=== PATIENT | female | born 1965 | race Caucasian/White ===

== ENCOUNTER 2016-02-17 16:07 | Emergency (ER) | payer MEDICARE, MEDICAID ==
[2016-02-17 16:42] VITALS: BP 119/66
--- NOTE | 2016-02-17 17:01 | UC ---
General HPI - HPI Summary HPI Summary: The patient comes in today for: 1. Tailbone is sore after fall, right hand soreness, right shoulder pain: Onset: 2 days ago. Palliative/provocative: Pain medicine (Nucynta [address] Rahman in [place] sciatica/hamstring left leg and arthritis in "all my joints." Quality: Stabbing, sharp, Region/radiation: Severity: Right hand, tailbone, and right shoulder. Time: Constant. Associated symptoms: Event: She came out the door and slipped on ice falling straight down on her buttocks and on her right hand. She was able to get up by herself. She felt pain right then. She however, went to yazidism. She came back home after a couple hours. Then she went to work ([employer]). She did "the best" that she could. She worked there four hours. She went home. She just relaxed. She iced the tail bone area. She soaked in the tub and used her "bed palomo" after heating it up in the microwave. Then went to bed. This AM, she is "still sore." She did not do any other treatments Numbness/weakness (new): None. Bowel/bladder control: No new symptoms. * - History of Current Complaint Chief Complaint: UCLowerExtremity Stated Complaint: BACK PAIN Time Seen by Provider: 02/17/16 16:52 Hx Obtained From: Patient - Allergy/Home Medications Allergies/Adverse Reactions: Allergies Allergy/AdvReac Type Severity Reaction Status Date / Time Diazepam [From Valium] Allergy Severe See Comment Verified 02/17/16 16:37 Hydrocodone [From Vicodin] Allergy Severe See Comment Verified 02/17/16 16:37 Metaxalone [From Skelaxin] Allergy Severe Rash Verified 02/17/16 16:37 Ibuprofen AdvReac Severe HX Verified 02/17/16 16:37 ESOPHAGITIS FROM MOBIC narcotics Allergy Severe See Comment Uncoded 02/17/16 16:37 muscle relaxers Allergy Altered Uncoded 02/17/16 16:37 Mental Status Home Medications: Home Medications Tapentadol HCl [Nucynta] 02/17/16 [History] PMH/Surg Hx/FS Hx/Imm Hx Previously Healthy: No - Allergic rhinitis, urge incontinence, hamstring/ sciatica "whole body arthri Endocrine History Of: Reports: Thyroid Disease - hypothyroid, Hypothyroidism Cardiovascular History Of: Reports: Cardiac Disorders - elevated trop. She denies any heart problems, stents, bypasses Denies: Hypertension, Pacemaker/ICD, Myocardial Infarction, Congestive Heart Failure, Atrial Fibrillation, Deep Vein Thrombosis, Bleeding Disorders Respiratory History Of: Denies: COPD, Asthma, Bronchitis, Pneumonia, Pulmonary Embolism GI/ History Of: Denies: Gastroesophageal Reflux, Ulcer, Gastrointestinal Bleed, Gall Bladder Disease, Kidney Stones, Diverticulitis, Renal Disease, Urosepsis Neurological History Of: Reports: Migraine Denies: TIA, CVA, Dementia, Seizures Psychological History Of: Reports: Bipolar Disorder Denies: Anxiety, Depression, Schizophrenia, Post Traumatic Stress Disorder Cancer History Of: Denies: Lung Cancer, Colorectal Cancer, Breast Cancer, Prostate Cancer, Cervical Cancer Other History Of: Negative For: HIV, Hepatitis B, Hepatitis C, Anticoagulant Therapy - Surgical History Surgical History: Yes Surgery Procedure, Year, and Place: TUBAL LIGATION, WISDOM TEETH EXTRACTION - Family History Known Family History: Positive: Cardiac Disease, Hypertension, Other - NONCONTIRBUTORY - Social History Occupation: Employed Full-time Alcohol Use: None Substance Use Type: None Smoking Status (MU): Former Smoker Review of Systems Constitutional: Negative Skin: Negative Eyes: Negative ENT: Negative Respiratory: Negative Cardiovascular: Negative Gastrointestinal: Negative Genitourinary: Negative Musculoskeletal: Arthralgia, Myalgia All Other Systems Reviewed And Are Negative: Yes Physical Exam Triage Information Reviewed: Yes Appearance: Well-Appearing, No Pain Distress, Well-Nourished, Other: - She is animated and has no guarding of psychomotor slowing. Vital Signs: Initial Vital Signs Temp 96.2 F 02/17/16 16:38 Pulse 91 02/17/16 16:38 Resp 16 02/17/16 16:38 BP 119/66 02/17/16 16:38 Pulse Ox 99 02/17/16 16:38 Vital Signs Reviewed: Yes Eyes: Positive: Conjunctiva Clear. Negative: Discharge ENT: Positive: Hearing grossly normal. Negative: Pharyngeal erythema, Nasal congestion, Nasal drainage, TM bulging, TM red, Tonsillar swelling, Tonsillar exudate Dental: Negative: Gross Decay/Caries @, Dental Fracture @ Neck: Positive: Supple, Nontender, No Lymphadenopathy. Negative: Nuchal Rigidity Respiratory: Positive: Chest non-tender, Lungs clear, No respiratory distress, No accessory muscle use. Negative: Crackles, Wheezing Cardiovascular: Positive: RRR, No Murmur Abdomen Description: Positive: Nontender, No Organomegaly, Soft. Negative: Distended, Guarding Musculoskeletal: Positive: Strength Intact, ROM Intact, Other: - She has sorness to palpation of the lower sacral area--but no ecchymosis or edema. There was slight tenderness to palpation of the coracoid process and biceps tendon on the right shoulder. She had excellent abduction. No ecchymosis or edema. She had no pain with internal and external rotational strain. She had no ecchymosis or edema or restriction in range of motion of the fingers or wrists of the right hand/wrist. Neurological: Positive: Alert, Muscle Tone Normal Psychological: Positive: Age Appropriate Behavior, Consolable Skin: Negative: rashes, breakdown Diagnostics - Radiology No standard instances Xray Interpretation: No Acute Changes Radiology Interpretation Completed By: Radiologist - Right shoulder: Negative Right hand: Negative Sacrum/coccyx: Negative. Course/Dx - Course Course Of Treatment: Patient was told of the negative x-rays. She is happy with taking Nucynta for pain. - Differential Dx - Multi-Symptom Provider Diagnoses: Contusion (right hand, right shoulder, sacrum/coccyx): Discharge - Discharge Plan Condition: Stable Disposition: HOME Patient Education Materials: Contusion in Adults (ED) Referrals: Annie Fonseca MD [Primary Care Provider] - 1 Week (Please see your primary care provider in a week. If you get worse, please be seen sooner.)
--- NOTE | 2016-02-17 17:41 | RAD ---
INDICATION: Right shoulder pain 3 days after a traumatic fall COMPARISON: None. TECHNIQUE: 3 views of the right shoulder were obtained. FINDINGS: The adequately corticated bones are in normal alignment. Joint spaces appear maintained. No fracture, dislocation or focal bony abnormality is seen. IMPRESSION: Normal radiograph of the right shoulder. If the patient's symptoms persist, follow-up imaging is recommended.
--- NOTE | 2016-02-17 17:42 | RAD ---
INDICATION: Right hand pain after a fall COMPARISON: None. TECHNIQUE: 2 views of the right hand were obtained. The adequately corticated bones are in normal alignment. No significant focal osseous abnormality or fracture is seen. Joint spaces appear maintained. IMPRESSION: Normal hand radiograph. If the patient's symptoms persist, follow-up imaging is recommended.
--- NOTE | 2016-02-17 17:44 | RAD ---
Indication: Sacral pain 3 days after a fall Comparison: None. Technique: AP and lateral views sacrum and coccyx. Report: The visualized bones of the sacrum and coccyx are well-corticated and properly aligned. The joint spaces are adequately maintained. There is no radiographically apparent acute fracture or dislocation. IMPRESSION: Normal radiograph of the sacrum and coccyx. If the patient's symptoms persist, follow-up imaging is recommended.
== END 2016-02-17 17:55 | disposition home or self-care (01) ==
LOC: UCEAST 16:07
DX: S60.221A Contusion of right hand, initial encounter (principal); S40.011A Contusion of right shoulder, initial encounter; S30.0XXA Contusion of lower back and pelvis, initial encounter; Z87.891 Personal history of nicotine dependence; Z88.5 Allergy status to narcotic agent; Z88.6 Allergy status to analgesic agent; Z88.8 Allergy status to other drugs, medicaments and biological substances; W00.0XXA Fall on same level due to ice and snow, initial encounter; Y92.9 Unspecified place or not applicable
CPT/HCPCS: 72220; 99211; G0463

== ENCOUNTER 2016-08-06 22:09 | Emergency (ER) | payer MEDICARE, MEDICAID ==
[2016-08-07 00:01] LABS: Hematocrit 38 % (35-47); Hemoglobin 12.9 g/dl (12.0-16.0); Mean Corpuscular HGB Conc 34 g/dl (31-36); Mean Corpuscular Hemoglobin 31 pg (27-31); Mean Corpuscular Volume 89 fL (80-97); Mean Platelet Volume 7 um3 (7.4-10.4); Red Blood Count 4.24 10^6/ul (4.0-5.4); Red Cell Distribution Width 13 % (10.5-15); White Blood Count 4.8 10^3/ul (3.5-10.8)
[2016-08-07 00:17] LABS: Albumin 3.6 g/dL (3.2-5.2); BUN/Creatinine Ratio 12.3 (8-20); Calcium 8.7 mg/dL (8.6-10.3); EGFR African American 142.7 (>60); Potassium 3.1 mmol/L (3.5-5.0); Total Bilirubin 0.3 mg/dL (0.2-1.0); Total Protein 6.6 g/dL (6.4-8.9)
[2016-08-07] MEDS ORDERED: Potassium Chlor TAB* 20 MEQ TAB.ER PO ONE (00:37)
--- NOTE | 2016-08-07 00:37 | ED ---
Sully Wright Alfonso, scribed for Arvind Rao MD on 08/06/16 at 2345 . Shortness of Breath - HPI Summary HPI Summary: This patient is a 51 year old female presenting to [facility] c/o a nonproductive cough since last week. Her symptoms are intermittent and became worse at 0800 today. She has been taking Mucinex all week with no relief of symptoms. Symptoms aggravated and alleviated by nothing. She reports chest tightness and diaphoresis. She denies a fever. She also denies tobacco use. - History of Current Complaint Chief Complaint: EDShortnessOfBreath Time Seen by Provider: 08/06/16 23:31 Hx Obtained From: Patient Onset/Duration: Sudden Onset, Lasting Weeks - 1 week, Worse Since Timing: Intermittent Episodes Lasting: Current Severity: Moderate Aggrevating Factors: Nothing Alleviating Factors: Nothing Associated Signs & Symptoms: Cough (Nonproductive), Chest Pain w/Cough - Chest tightness, Diaphoresis - Allergy/Home Medications Allergies/Adverse Reactions: Allergies Allergy/AdvReac Type Severity Reaction Status Date / Time Diazepam [From Valium] Allergy Severe See Comment Verified 08/06/16 23:24 Hydrocodone [From Vicodin] Allergy Severe See Comment Verified 08/06/16 23:24 Metaxalone [From Skelaxin] Allergy Severe Rash Verified 08/06/16 23:24 Ibuprofen AdvReac Severe HX Verified 08/06/16 23:24 ESOPHAGITIS FROM MOBIC narcotics Allergy Severe See Comment Uncoded 08/06/16 23:24 muscle relaxers Allergy Altered Uncoded 08/06/16 23:24 Mental Status PMH/Surg Hx/FS Hx/Imm Hx Endocrine/Hematology History: Reports: Hx Thyroid Disease - hypothyroid Denies: Hx Anticoagulant Therapy, Hx Diabetes, Hx Systemic Lupus Erythematosus Cardiovascular History: Reports: Hx Angina Denies: Hx Congestive Heart Failure, Hx Deep Vein Thrombosis, Hx Hypertension , Hx Myocardial Infarction, Hx Pacemaker/ICD Respiratory History: Denies: Hx Asthma, Hx Chronic Obstructive Pulmonary Disease (COPD), Hx Lung Cancer, Hx Pneumonia, Hx Pulmonary Embolism GI History: Denies: Hx Gall Bladder Disease, Hx Gastrointestinal Bleed, Hx Ulcer, Hx Urosepsis History: Denies: Hx Kidney Stones, Hx Renal Disease Musculoskeletal History: Reports: Hx Arthritis Denies: Hx Rheumatoid Arthritis, Hx Osteoporosis Neurological History: Reports: Hx Migraine Denies: Hx Dementia, Hx Seizures, Hx Transient Ischemic Attacks (TIA) Psychiatric History: Reports: Hx Bipolar Disorder Denies: Hx Anxiety, Hx Depression, Hx Schizophrenia, Hx Substance Abuse - Cancer History Hx Chemotherapy: No - Surgical History Surgery Procedure, Year, and Place: TUBAL LIGATION, WISDOM TEETH EXTRACTION Infectious Disease History: No Infectious Disease History: Denies: Hx Clostridium Difficile, Hx Hepatitis, Hx Human Immunodeficiency Virus (HIV), Hx Shingles, Hx Tuberculosis, History Other Infectious Disease, Traveled Outside the [place] in Last 30 Days - Family History Known Family History: Positive: Cardiac Disease, Hypertension, Other - NONCONTIRBUTORY - Social History Alcohol Use: None Substance Use Type: Reports: Prescribed Smoking Status (MU): Former Smoker Review of Systems Positive: Skin Diaphoresis. Negative: Fever Positive: Chest Pain - Chest tightness Positive: Cough - Non productive All Other Systems Reviewed And Are Negative: Yes Physical Exam Triage Information Reviewed: Yes Vital Signs On Initial Exam: Initial Vitals Temp Pulse Resp BP Pulse Ox 96.7 F 109 18 121/81 95 08/06/16 22:11 08/06/16 22:11 08/06/16 22:11 08/06/16 22:11 08/06/16 22:11 Vital Signs Reviewed: Yes Appearance: Positive: Well-Appearing, No Pain Distress Skin: Positive: Warm Head/Face: Positive: Normal Head/Face Inspection Eyes: Positive: SOCRATES ENT: Positive: Hearing grossly normal Neck: Positive: Supple Respiratory/Lung Sounds: Positive: Clear to Auscultation, Breath Sounds Present Cardiovascular: Positive: RRR Abdomen Description: Positive: Nontender, Soft Bowel Sounds: Positive: Present Musculoskeletal: Positive: Strength/ROM Intact Neurological: Positive: Alert, Oriented to Person Place, Time Psychiatric: Positive: Affect/Mood Appropriate Diagnostics - Vital Signs Vital Signs Temp Pulse Resp BP Pulse Ox 08/06/16 23:20 97.6 F 93 16 123/81 97 08/06/16 23:15 97.6 F 93 16 123/81 97 08/06/16 23:08 94 123/81 96 08/06/16 23:06 151/91 08/06/16 22:11 96.7 F 109 18 121/81 95 - Laboratory Lab Results: Lab Results 08/06/16 08/06/16 Range/Units 23:48 23:48 WBC 4.8 (3.5-10.8) 10^3/ul RBC 4.24 (4.0-5.4) 10^6/ul Hgb 12.9 (12.0-16.0) g/dl Hct 38 (35-47) % MCV 89 (80-97) fL MCH 31 (27-31) pg MCHC 34 (31-36) g/dl RDW 13 (10.5-15) % Plt Count 232 (150-450) 10^3/ul MPV 7 L (7.4-10.4) um3 Neut % (Auto) 62.8 (38-83) % Lymph % (Auto) 26.2 (25-47) % [facility] % (Auto) 9.6 H (1-9) % Eos % (Auto) 0.9 (0-6) % Baso % (Auto) 0.5 (0-2) % Absolute Neuts (auto) 3.0 (1.5-7.7) 10^3/ul Absolute Lymphs (auto) 1.3 (1.0-4.8) 10^3/ul Absolute Monos (auto) 0.5 (0-0.8) 10^3/ul Absolute Eos (auto) 0 (0-0.6) 10^3/ul Absolute Basos (auto) 0 (0-0.2) 10^3/ul Absolute Nucleated RBC 0 10^3/ul Nucleated RBC % 0.1 Sodium 134 (133-145) mmol/L Potassium 3.1 L (3.5-5.0) mmol/L Chloride 101 (101-111) mmol/L Carbon Dioxide 24 (22-32) mmol/L Anion Gap 9 (2-11) mmol/L BUN 7 (6-24) mg/dL Creatinine 0.57 (0.51-0.95) mg/dL Est GFR ( Amer) 142.7 (>60) Est GFR (Non-Af Amer) 111.0 (>60) BUN/Creatinine Ratio 12.3 (8-20) Glucose 97 (70-100) mg/dL Calcium 8.7 (8.6-10.3) mg/dL Total Bilirubin 0.30 (0.2-1.0) mg/dL AST 19 (13-39) U/L ALT 17 (7-52) U/L Alkaline Phosphatase 35 (34-104) U/L Total Protein 6.6 (6.4-8.9) g/dL Albumin 3.6 (3.2-5.2) g/dL Globulin 3.0 (2-4) g/dL Albumin/Globulin Ratio 1.2 (1-3) Result Diagrams: 08/06/16 23:48 08/06/16 23:48 Lab Statement: Any lab studies that have been ordered have been reviewed, and results considered in the medical decision making process. - Radiology CXR Radiology Interpretation Completed By: ED Physician - No acute disease - EKG 2328 Cardiac Rate: NL - BPM 86 EKG Rhythm: Sinus Rhythm Re-Evaluation - Re-Evaluation First Eval Change: Improved - results d/w pt Course/Dx - Diagnoses Provider Diagnoses: URI (upper respiratory infection) Discharge - Discharge Plan Condition: Improved Disposition: HOME Patient Education Materials: Upper Respiratory Infection (ED) Referrals: Annie Fonseca MD [Primary Care Provider] - 1 Week The documentation as recorded by the Sully mott Alfonso accurately reflects the service I personally performed and the decisions made by Jalen zheng David, MD.
[2016-08-07 01:04] VITALS: BP 135/70
--- NOTE | 2016-08-07 07:34 | RAD ---
INDICATION: Cough. COMPARISON: Comparison is made with prior study from April 28, 2013. TECHNIQUE: Dual-energy PA and lateral views of the chest were obtained. FINDINGS: The heart is within normal limits in size. Mediastinal and hilar contours appear within normal limits. The lungs are underinflated and clear. No pleural effusion is seen. There are nipple shadows which project above both lung bases. IMPRESSION: NO EVIDENCE FOR ACTIVE CARDIOPULMONARY DISEASE.
== END 2016-08-07 01:00 | disposition home or self-care (01) ==
LOC: ED 22:09
DX: J06.9 Acute upper respiratory infection, unspecified (principal); R61 Generalized hyperhidrosis; R05 Cough; R07.9 Chest pain, unspecified; Z87.891 Personal history of nicotine dependence
CPT/HCPCS: 36415; 71020; 80053; 85025; 93005; 99282; A9270-GY

== ENCOUNTER 2017-06-28 10:24 | Day surgery (SDC) | payer MEDICARE, MEDICAID ==
[~2017-06-28 10:24] MED LIST: Buffered Lidocaine 0.9% SYRIN* 5 ML/SYR SYRINGE INTRADERM ONE
[2017-06-28] MEDS ORDERED: Lidocaine 2% PF * 5 ML VIAL ONE (12:32)
[2017-06-28] MEDS ORDERED: Propofol* 10 MG/ML 20 ML BTL IV PUSH ONE (12:32)
[2017-06-28 13:11] VITALS: BP 101/61
[2017-06-28] MEDS ORDERED: Lidocaine 1% MPF* 2 ML VIAL ONE (14:20)
[2017-06-28] MEDS ORDERED: Cyclopentolate 1% OPTH.SOL* 2 ML BTL ONE (14:20)
[2017-06-28] MEDS ORDERED: Tetracaine 0.5% OPTH.SOL 4 ML* 1 DROP BTL ONE (14:20)
[2017-06-28] MEDS ORDERED: Tropicamide 1% OPTH.SOL* BTL ONE (14:20)
[2017-06-28] MEDS ORDERED: Phenylephrine 2.5% OPTH.SOL* 2 ML BTL ONE (14:20)
[2017-06-28] MEDS ORDERED: Ketorolac 0.5% OPHTH (NF) 0.5 % 5 ML BTL ONE (14:20)
[2017-06-28] MEDS ORDERED: Neomycin/Polymy/Dex OPHTH.OIN* 3.5 GM ONE (14:20)
--- NOTE | 2017-06-28 16:45 | OP ---
DATE OF OPERATION/DATE OF DICTATION: 06/28/2017 - [facility] DATE OF : 1965. SURGEON: Dr. Marcus Simpson. POLE LIFT OPERATOR: None. ANESTHESIA: Topical with intravenous sedation. PRE-OP DIAGNOSIS: Cataract, right eye. POST-OP DIAGNOSIS: Cataract, right eye. OPERATIVE PROCEDURE: Phacoemulsification and cataract extraction with posterior chamber intraocular lens implant, right eye. COMPLICATIONS: None. BLOOD LOSS: None. DESCRIPTION OF PROCEDURE: The patient was brought to the operating room and received a small amount of intra-venous sedation. A drop of Tetracaine was placed in her right eye. She was prepped and draped in the usual sterile fashion for ophthalmic surgery and attention was directed to the right eye where a speculum was placed. A paracentesis was created at the 11 o'clock position and 0.1 cc of 1 percent preservative-free Lidocaine was injected into the anterior chamber followed by DisCoVisc. The eye was digitally stabilized while a 2.75 mm keratome was used to create a triplanar clear corneal incision at the 9 o'clock position. A continuous curvilinear capsulorrhexis was created with a cystotome and Utrata forceps. BSS on a cannula was used to hydrodissect the lens from the capsule. Phacoemulsification was performed in a divide-and- conquer technique to create four fragments which were removed. Residual cortical material was removed with irrigation and aspiration. DisCoVisc was used to inflate the capsular bag and an AUOOTO 19.0 diopter lens was folded and inserted into the capsular bag. DisCoVisc was removed using irrigation and aspiration. BSS on a cannula was used to hydrate the corneal stroma and seal the wound. At the end of the case the pupil was round and the lens was centered. The eye was of normal pressure and the wound was water tight. The speculum was removed and topical Maxitrol ointment was placed on the surface of the eye. The eye was closed, patched and shielded and the patient was sent to the recovery room in stable condition with post operative instructions and follow-up appointment given. [id number]/CPS #: [id number] MTDD
== END 2017-07-05 09:15 | disposition home or self-care (01) ==
LOC: OREAST 10:24
PROVIDERS: ATTEND Ophthalmology
DX: H25.11 Age-related nuclear cataract, right eye (principal); F31.9 Bipolar disorder, unspecified; M19.90 Unspecified osteoarthritis, unspecified site; E03.9 Hypothyroidism, unspecified; E78.5 Hyperlipidemia, unspecified; K21.9 Gastro-esophageal reflux disease without esophagitis; Z87.891 Personal history of nicotine dependence; M54.30 Sciatica, unspecified side
CPT/HCPCS: A9270-GY; J2704; V2632

== ENCOUNTER → 2017-07-05 07:23 | Day surgery (SDC) | payer MEDICARE, MEDICAID ==
[~2017-07-05 07:23] MED LIST changes: -Buffered Lidocaine 0.9% SYRIN* 5 ML/SYR SYRINGE INTRADERM ONE; +Cyclopentolate 1% OPTH.SOL* 2 ML BTL ONE; +Ketorolac 0.5% OPHTH (NF) 0.5 % 5 ML BTL ONE; +Lidocaine 1%* 5 ML VIAL ONE; +Lidocaine 2% PF * 5 ML VIAL ONE; +Midazolam* 1 MG/ML 2 ML VIAL (2 MG) ONE; +Neomycin/Polymy/Dex OPHTH.OIN* 3.5 GM ONE; +Phenylephr/Ketorolac 1%/0.3% OPH DROP BTL ONE; +Phenylephrine 2.5% OPTH.SOL* 2 ML BTL ONE; +Propofol* 10 MG/ML 20 ML BTL IV PUSH ONE; +Tetracaine 0.5% OPTH.SOL 4 ML* 1 DROP BTL ONE; +Tropicamide 1% OPTH.SOL* BTL ONE; +fentaNYL* 50 MCG/ML 2 ML VIAL (100 MCG VIAL) ONE
[2017-07-05 09:14] VITALS: BP 105/53
--- NOTE | 2017-07-05 12:06 | OP ---
DATE OF OPERATION/DATE OF DICTATION: 07/05/2017 - [facility] DATE OF : 1965. SURGEON: Dr. Marcus Simpson. STEAM ROOM ATTENDANT: None. ANESTHESIA: Topical with intravenous sedation. PRE-OP DIAGNOSIS: Cataract, left eye. POST-OP DIAGNOSIS: Cataract, left eye. OPERATIVE PROCEDURE: Phacoemulsification and cataract extraction with posterior chamber intraocular lens implant, left eye. COMPLICATIONS: None. BLOOD LOSS: None. DESCRIPTION OF PROCEDURE: The patient was brought to the operating room and received a small amount of intravenous sedation. A drop of Tetracaine was placed in her left eye. She was prepped and draped in the usual sterile fashion for ophthalmic surgery and attention was directed to the left eye where a speculum was placed. A paracentesis was created at the 5 o'clock position and 0.1 cc of 1 percent preservative-free Lidocaine was injected into the anterior chamber followed by DisCoVisc. The eye was digitally stabilized while a 2.75 mm keratome was used to create a triplanar clear corneal incision at the 3 o'clock position. A continuous curvilinear capsulorrhexis was created with a cystotome and Utrata forceps. BSS on a cannula was used to hydrodissect the lens from the capsule. Phacoemulsification was performed in a divide-and- conquer technique to create four fragments which were removed. Residual cortical material was removed with irrigation and aspiration. DisCoVisc was used to inflate the capsular bag and an AUOOTO 19.5 diopter lens was folded and inserted into the capsular bag. DisCoVisc was removed using irrigation and aspiration. BSS on a cannula was used to hydrate the corneal stroma and seal the wound. At the end of the case the pupil was round and the lens was centered. The eye was of normal pressure and the wound was water tight. The speculum was removed and topical Maxitrol ointment was placed on the surface of the eye. The eye was closed, patched and shielded and the patient was sent to the recovery room in stable condition with post operative instructions and follow-up appointment given. [id number]/CPS #: [id number] MTDD
== END | disposition home or self-care (01) ==
LOC: OREAST 07:23
PROVIDERS: ATTEND Ophthalmology
DX: H25.12 Age-related nuclear cataract, left eye (principal); M19.90 Unspecified osteoarthritis, unspecified site; E03.9 Hypothyroidism, unspecified; F31.81 Bipolar II disorder; E78.2 Mixed hyperlipidemia; K21.9 Gastro-esophageal reflux disease without esophagitis; E06.3 Autoimmune thyroiditis
CPT/HCPCS: A9270-GY; C9447; J2250; J2704; J3010; V2632

== ENCOUNTER → 2018-03-13 10:43 | Emergency (ER) | payer MEDICARE, MEDICAID ==
[~2018-03-13 10:43] MED LIST changes: -Cyclopentolate 1% OPTH.SOL* 2 ML BTL ONE; +Iohexol 300* (CONTRAST) 10 ML SDV IV ONE; -Ketorolac 0.5% OPHTH (NF) 0.5 % 5 ML BTL ONE; -Lidocaine 1%* 5 ML VIAL ONE; -Lidocaine 2% PF * 5 ML VIAL ONE; -Midazolam* 1 MG/ML 2 ML VIAL (2 MG) ONE; -Neomycin/Polymy/Dex OPHTH.OIN* 3.5 GM ONE; -Phenylephr/Ketorolac 1%/0.3% OPH DROP BTL ONE; -Phenylephrine 2.5% OPTH.SOL* 2 ML BTL ONE; -Propofol* 10 MG/ML 20 ML BTL IV PUSH ONE; -Tetracaine 0.5% OPTH.SOL 4 ML* 1 DROP BTL ONE; -Tropicamide 1% OPTH.SOL* BTL ONE; -fentaNYL* 50 MCG/ML 2 ML VIAL (100 MCG VIAL) ONE
--- NOTE | 2018-03-13 13:30 | ED ---
Abdominal Pain/Female - HPI Summary HPI Summary: Patient is a 52 y/o F presenting to ED with complaints of LLQ pain with radiation to left side of lower back and down left leg onsetting three days ago in the evening. She reports diaphoresis and fatigue as well. N/V/D, fever, vaginal discharge, hematuria, and rashes are denied. Patient notes constipation but contributes this to her medications. Appendix is still present. On triage, pain is rated 10/10. Nothing is noted to aggravate/alleviate Sx. Home medications and allergies are reviewed. - History of Current Complaint Chief Complaint: EDAbdPain Stated Complaint: SWEATS/ABD PAIN LEFT SIDE AND BACK Time Seen by Provider: 03/13/18 13:17 Hx Obtained From: Patient Hx Last Menstrual Period: last week but irregular Onset/Duration: Lasting Days - three, Still Present Timing: Days - three Severity Currently: Severe Pain Intensity: 8 Pain Scale Used: 0-10 Numeric - 8/10 Location: Discrete At: LLQ Radiates: Yes Radiates to: Back - left lower, Other - left leg Aggravating Factor(s): Nothing Alleviating Factor(s): Nothing Associated Signs and Symptoms: Positive: Diaphoresis, Constipation - contributes this to her medications, Other: - NEGATIVE - RASH; POSITIVE - FATIGUE. Negative: Fever, Urinary Symptoms - no hematuria, Vaginal Discharge, Nausea, Vomiting, Diarrhea Allergies/Adverse Reactions: Allergies Allergy/AdvReac Type Severity Reaction Status Date / Time diazepam Allergy Severe See Comment Verified 03/13/18 11:05 metaxalone Allergy Severe Rash Verified 03/13/18 11:05 ibuprofen Allergy See Comment Verified 03/13/18 11:05 oxycodone Allergy Altered Verified 03/13/18 11:05 Mental Status muscle relaxers Allergy Intermediate Altered Uncoded 07/05/17 07:59 Mental Status PMH/Surg Hx/FS Hx/Imm Hx Endocrine/Hematology History: Reports: Hx Thyroid Disease - hypothyroid, Hx Anemia - history of anemia, years ago Denies: Hx Anticoagulant Therapy, Hx Diabetes, Hx Systemic Lupus Erythematosus Cardiovascular History: Reports: Hx Angina Denies: Hx Congestive Heart Failure, Hx Deep Vein Thrombosis, Hx Hypertension , Hx Myocardial Infarction, Hx Pacemaker/ICD, Hx Peripheral Vascular Disease, Other Cardiovascular Problems/Disorders Respiratory History: Reports: Other Respiratory Problems/Disorders - pneumonia 7 years ago Denies: Hx Asthma, Hx Chronic Obstructive Pulmonary Disease (COPD), Hx Lung Cancer, Hx Pneumonia, Hx Pulmonary Embolism GI History: Reports: Hx Gastroesophageal Reflux Disease - on medication Denies: Hx Gall Bladder Disease, Hx Gastrointestinal Bleed, Hx Ulcer, Hx Urosepsis, Other GI Disorders History: Reports: Hx Kidney Infection - history of, none recent, Other Problems/Disorders - states "nervous bladder" on vesicare, incontinent with anxiety, Hx UTIs Denies: Hx Kidney Stones, Hx Renal Disease Musculoskeletal History: Reports: Hx Arthritis, Hx Bursitis - in heels per pt, Hx Tendonitis - bilateral elbows, Other Musculoskeletal History - Sciatica Denies: Hx Rheumatoid Arthritis, Hx Osteoporosis Sensory History: Reports: Hx Cataracts - Bilateral, Hx Contacts or Glasses - Glasses Denies: Hx Glaucoma, Hx Hearing Aid Opthamlomology History: Reports: Hx Cataracts - Bilateral, Hx Contacts or Glasses - Glasses Denies: Hx Glaucoma Neurological History: Reports: Hx Migraine, Hx Nerve Disease - Nerve pain, sciatica, pt of Dr Rodríguez Denies: Hx Dementia, Hx Seizures, Hx Transient Ischemic Attacks (TIA), Other Neuro Impairments/Disorders - Bipolar Disorder-[facility] Psychiatric History: Reports: Hx Bipolar Disorder Denies: Hx Anxiety, Hx Depression, Hx Schizophrenia, Hx Substance Abuse - Cancer History Hx Chemotherapy: No - Surgical History Surgery Procedure, Year, and Place: TUBAL LIGATION, WISDOM TEETH EXTRACTION Hx Anesthesia Reactions: Yes - States she takes longer to come out of anesthesia Infectious Disease History: No Infectious Disease History: Denies: Hx Clostridium Difficile, Hx Hepatitis, Hx Human Immunodeficiency Virus (HIV), Hx Shingles, Hx Tuberculosis, History Other Infectious Disease, Traveled Outside the in Last 30 Days - Family History Known Family History: Positive: Cardiac Disease, Hypertension, Other - NONCONTIRBUTORY - Social History Alcohol Use: None Substance Use Type: Reports: Prescribed Hx Tobacco Use: No Smoking Status (MU): Former Smoker Type: Cigarettes Have You Smoked in the Last Year: No Review of Systems Positive: Fatigue, Skin Diaphoresis. Negative: Fever Positive: Abdominal Pain, Other - constipation due to medications . Negative: Vomiting, Diarrhea, Nausea Negative: discharge - vaginal , hematuria Negative: Rash All Other Systems Reviewed And Are Negative: Yes Physical Exam - Summary Physical Exam Summary: Appearance: Well appearing, no pain distress Skin: warm, dry, reflects adequate perfusion Head/face: normal Eyes: EOMI, SOCRATES ENT: normal Neck: supple, non-tender Respiratory: CTA, breath sounds present Cardiovascular: RRR, pulses symmetrical Abdomen: LLQ tenderness, soft Musculoskeletal: normal, strength/ROM intact Neuro: normal, sensory motor intact, A&Ox3 Triage Information Reviewed: Yes Vital Signs On Initial Exam: Initial Vitals Temp Pulse Resp BP Pulse Ox 97.3 F 87 16 106/81 95 03/13/18 11:02 03/13/18 11:02 03/13/18 11:02 03/13/18 11:02 03/13/18 11:02 Vital Signs Reviewed: Yes Diagnostics - Vital Signs Vital Signs Temp Pulse Resp BP Pulse Ox 03/13/18 12:49 98.3 F 76 16 120/74 98 03/13/18 11:02 97.3 F 87 16 106/81 95 - Laboratory Result Diagrams: 03/13/18 13:13 03/13/18 13:13 Lab Statement: Any lab studies that have been ordered have been reviewed, and results considered in the medical decision making process. - CT abd/pel ct CT Interpretation Completed By: Radiologist Summary of CT Findings: CT ABD/PEL IMPRESSION: HEPATOMEGALY WITH FATTY INFILTRATION OF THE LIVER. NO ACUTE CT PATHOLOGY OF THE VISUALIZED ABDOMEN OR PELVIS. THIS REPORT WAS REVIEWED BY ED PHYSICIAN. Re-Evaluation - Re-Evaluation First Eval Re-Evaluation Time: 16:39 Comment: Results of labs and tests were discussed with patient, patient will be discharged to home and follow up with GI and PCP. Patient is agreeable with this. Abdominal Pain Fem Course/Dx - Course Course Of Treatment: Patient is a 52 y/o F presenting to ED with complaints of LLQ pain with radiation to left side of lower back and down left leg onsetting three days ago in the evening. She reports diaphoresis and fatigue as well. N/V/ D, fever, vaginal discharge, hematuria, and rashes are denied. Patient notes constipation but contributes this to her medications. Appendix is still present. On physical exam, LLQ tenderness is noted. Bloodwork, UA were obtained. During ED course, patient received fluids. CT ABD/PEL IMPRESSION: HEPATOMEGALY WITH FATTY INFILTRATION OF THE LIVER. NO ACUTE CT PATHOLOGY OF THE VISUALIZED ABDOMEN OR PELVIS. Results of labs and tests were discussed with patient, patient will be discharged to home and follow up with GI and PCP. Patient is agreeable with this. - Diagnoses Differential Diagnosis: Positive: Appendicitis, Diverticulitis, Renal Colic, Urinary Tract Infection Provider Diagnoses: Abdominal pain Discharge - Sign-Out/Discharge Documenting (check all that apply): Patient Departure - discharge - Discharge Plan Condition: Stable Disposition: HOME Patient Education Materials: Abdominal Pain (ED) Referrals: Annie Fonseca MD [Primary Care Provider] - 3 Days Marcus Chatterjee MD [Medical Doctor] - 3 Days Additional Instructions: RETURN TO ED FOR ANY NEW OR WORSENING SYMPTOMS. FOLLOW UP WITH PRIMARY CARE PHYSICIAN WITHIN THREE DAYS. - Billing Disposition and Condition Condition: STABLE Disposition: Home - Attestation Statements Document Initiated by Luz Elenaibisaura: Yes Documenting Scribe: CHEYENNE OLVERA Provider For Whom Joan is Documenting (Include Credential): LAURA GUTIERRES MD Scribe Attestation: CHEYENNE Wright , scribed for LAURA GUTIERRES MD on 03/13/18 at 1724. Scribe Documentation Reviewed: Yes Provider Attestation: The documentation as recorded by the CHEYENNE mott accurately reflects the service I personally performed and the decisions made by LAURA zheng MD Status of Scribe Document: Viewed
[2018-03-13 13:43] LABS: ABS Basophils 0 10^3/ul (0-0.2); ABS Eosinophils 0 10^3/ul (0-0.6); ABS Lymphocytes 2.8 10^3/ul (1.0-4.8); ABS Monocytes 0.3 10^3/ul (0-0.8); ABS Nucleated RBC 0 10^3/ul; Eosinophil % 0.5 %; Hematocrit 41 % (35-47); Mean Corpuscular HGB Conc 34 g/dl (31-36); Mean Corpuscular Hemoglobin 31 pg (27-31); Mean Corpuscular Volume 92 fL (80-97); Mean Platelet Volume 7.2 fL (7.4-10.4); Nucleated Red Blood Cells % 0.1; Platelet Count 392 10^3/ul (150-450); Red Blood Count 4.49 10^6/ul (4.00-5.40); Red Cell Distribution Width 13 % (10.5-15); White Blood Count 5.2 10^3/ul (3.5-10.8)
[2018-03-13 13:47] LABS: Urine Appearance Clear; Urine Bilirubin Negative (Negative); Urine Blood Negative (Negative); Urine Color Yellow; Urine Glucose Negative (Negative); Urine Ketones Negative (Negative); Urine Nitrite Negative (Negative); Urine Protein Negative (Negative); Urine Specific Gravity 1.018 (1.010-1.030); Urine Urobilinogen Negative (Negative)
[2018-03-13 14:04] LABS: ALT 14 U/L (7-52); AST 15 U/L (13-39); Albumin 4.5 g/dL (3.2-5.2); Albumin/Globulin Ratio 1.5 (1-3); Alkaline Phosphatase 44 U/L (34-104); Anion Gap 6 mmol/L (2-11); BUN/Creatinine Ratio 14.1 (8-20); Blood Urea Nitrogen 9 mg/dL (6-24); C Reactive Protein < 1.00 mg/L (<8.01); CO2 Carbon Dioxide 31 mmol/L (22-32); Calcium 9.7 mg/dL (8.6-10.3); Chloride 103 mmol/L (101-111); EGFR Non-African American 96.7 (>60); Glucose 96 mg/dL (70-100); Potassium 4.2 mmol/L (3.5-5.0); Sodium 140 mmol/L (135-145); Total Protein 7.5 g/dL (6.4-8.9)
[2018-03-13] MEDS: NS 0.9% 1000 ML** 1,000 ML IV SCH ×2 (14:30→15:21)
[2018-03-13 15:36] LABS: HCG Pregnancy 1.93 mIU/mL
[2018-03-13 16:59] VITALS: BP 124/77
== END | disposition home or self-care (01) ==
LOC: ED 10:43
DX: R10.32 Left lower quadrant pain (principal); E03.9 Hypothyroidism, unspecified; K21.9 Gastro-esophageal reflux disease without esophagitis; I25.2 Old myocardial infarction; Z87.891 Personal history of nicotine dependence
CPT/HCPCS: 36415; 74177; 80053; 81003; 83605; 83690; 84702; 85025; 86140; 96361; 96374; 99283; Q9967

== ENCOUNTER 2019-03-31 16:24 | Emergency (ER) | payer MEDICARE, MEDICAID ==
--- OUTSIDE RECORDS SUMMARY | 2019-03-31 16:32 | XMS REPORT | Continuity of Care Document ---
:1965 External Reference #:[id number] Author Name Demetrius Rodríguez DO MPH Address [address] [place] [address], [address] [place] [address] Care Team Providers Name Role Phone Annie Fonseca M.D. - Family Medicine Care Team Information Baccarat Manager [phone] Problems Active Problems Provider Date Finding of sensation of lumbar spine Demetrius Rodríguez DO, MPH Onset: 01/20/2019 Spinal enthesopathy Demetrius Rodríguez DO, MPH Onset: 01/20/2019 Synovitis and tenosynovitis Demetrius Rodríguez, DO, MPH Onset: 01/20/2019 Somatic dysfunction of pelvic region Demetrius Rodríguez, DO, MPH Onset: 01/20/2019 Arthralgia of the pelvic region and thigh Demetrius Rodríguez, DO, MPH Onset: 2018 Somatic dysfunction of lumbar region RodríguezDemetrius davidson, DO, MPH Onset: 01/20/2019 Low back pain Demetrius Rodríguez DO, MPH Onset: 01/20/2019 Social History Type Date Description Comments Sex Unknown Cigarette Use Former Cigarette Smoker ETOH Use Denies alcohol use Tobacco Use Start: Unknown End: Unknown Patient is a former smoker Smoking Status Reviewed: 03/06/19 Patient is a former smoker Allergies, Adverse Reactions, Alerts Active Allergies Reaction Severity Comments Date Skelaxin 03/17/2007 Tramadol 10/22/2015 Ibuprofen 10/22/2015 Butrans Urticaria 02/03/2016 Medications Active Medications SIG Qnty Indications Ordering Date Provider Hydrocodone-Acetaminop take 1 tablet by 60tabs Demetrius Rodríguez, 03/19/2016 hen mouth every 12 DO, MPH 10-325mg Tablets hours as directed chronic pain. Cymbalta 1 by mouth every Unknown 60mg Caps DR day as directed Part Levothyroxine Sodium 1 by mouth daily Unknown 25mcg Tablets Omeprazole si by mouth Unknown 40mg Capsules every day as DR directed dosage change Vesicare Unknown 5mg Tablets Pravastatin Sodium 1 by mouth at Unknown 20mg night Tablets Fluticasone Propionate 2 sprays each Unknown nostril each day 50mcg/Act Suspension Depakote ER 1 AT Night Unknown 500mg Tablets ER 24HR Rizatriptan Benzoate Unknown 10mg Tablets Singulair daily Unknown 10mg Tablets Loratadine si by mouth Unknown 10mg Tablets bid Alpha-Lipoic Acid take one capsule Unknown 200mg by mouth every 8 Capsules hours as directed chronic pain. Immunizations Description No Information Available Vital Signs Date Vital Result Comment 03/06/2019 3:10pm BP Systolic 128 mmHg BP Diastolic 84 mmHg Heart Rate 86 /min Respiratory Rate 20 /min Height 65 inches 5'5" Weight 144.00 lb Pain Level 9 Pain at this time. Pain Level With Medicine 8 on average with meds Pain Level Without Medicine 9 without meds BMI (Body Mass Index) 24.0 kg/m2 02/24/2019 11:16am BP Systolic 128 mmHg BP Diastolic 86 mmHg Heart Rate 84 /min Respiratory Rate 20 /min Height 65 inches 5'5" Weight 146.00 lb Pain Level 6 Pain at this time. Pain Level With Medicine 6 on average with meds Pain Level Without Medicine 9 without meds Pain Level After Procedure 4 BP Systolic Recheck 134 mmHg Pulse: 86 BP Diastolic Recheck 80 mmHg Pulse: 86 BMI (Body Mass Index) 24.3 kg/m2 Results Description No Information Available Procedures Date Code Description Status 02/24/2019 Arthrocentesis/Aspiration/Inj Of Major Joint Or Bursa W/ Completed Ultra 02/24/2019 Injection, Single Or Mutiple Trigger Points One Or Two Completed Muscles 02/24/2019 Injection, Tendon Origin/Insertion Completed 02/24/2019 Inject Tendon/Ligament Completed 02/02/2019 17445 Omt 1-2 Body Regions Completed 02/02/2019 93754 Therapeutic, Prophylactic Or Diagnostic Injection Subq/Im Completed 01/20/2019 Inject Tendon/Ligament Completed 01/20/2019 Inject Tendon/Ligament Completed 01/20/2019 Injection, Tendon Origin/Insertion Completed 01/20/2019 Injection, Tendon Origin/Insertion Completed 01/20/2019 Injection, Single Or Mutiple Trigger Points One Or Two Completed Muscles 01/20/2019 Arthrocentesis/Aspiration/Inj Of Major Joint Or Bursa W/ Completed Ultra 01/20/2019 Arthrocentesis/Aspiration/Inj Of Major Joint Or Bursa W/ Completed Ultra 01/20/2019 85528 Omt 1-2 Body Regions Completed 01/03/2019 38954 Omt 1-2 Body Regions Completed 01/03/2019 87113 Therapeutic, Prophylactic Or Diagnostic Injection Subq/Im Completed 12/04/2018 29473 Therapeutic, Prophylactic Or Diagnostic Injection Subq/Im Completed 10/27/2018 11265 Omt 3-4 Body Regions Completed 10/27/2018 58832 Therapeutic, Prophylactic Or Diagnostic Injection Subq/Im Completed 09/26/2018 04677 Therapeutic, Prophylactic Or Diagnostic Injection Subq/Im Completed 09/26/201884565 Arthrocentesis/Aspiration/Inj Of Major Joint Or Bursa W/ Completed Ultra Medical Devices Description No Information Available Encounters Type Date Location Provider Dx Diagnosis Office Visit 02/24/2019 Main Office as Of Demetrius Rodríguez DO, G89.29 Other chronic pain 11:15a 03/17/13 MPH M25.511 Pain in right shoulder M99.07 Segmental and somatic dysfunction of upper extremity M65.88 Other synovitis and tenosynovitis, other site M79.12 Myalgia of auxiliary muscles, head and neck M54.2 Cervicalgia M99.01 Segmental and somatic dysfunction of cervical region M54.6 Pain in thoracic spine M99.02 Segmental and somatic dysfunction of thoracic region Office Visit 02/02/2019 2:00p Main Office as Demetrius Rodríguez G89.29 Other chronic Of 03/17/13 DO, MPH pain M54.6 Pain in thoracic spine M54.2 Cervicalgia M99.01 Segmental and somatic dysfunction of cervical region M25.552 Pain in left hip M25.551 Pain in right hip Z79.891 halfway (current) use of opiate analgesic R53.83 Other fatigue Office Visit 01/20/2019 10:00a Main Office as Demetrius Rodríguez G89.29 Other chronic Of 03/17/13 DO, MPH pain M70.61 Trochanteric bursitis, right hip M70.62 Trochanteric bursitis, left hip M54.6 Pain in thoracic spine M99.02 Segmental and somatic dysfunction of thoracic region M54.5 Low back pain M99.03 Segmental and somatic dysfunction of lumbar region M25.552 Pain in left hip M25.551 Pain in right hip M99.05 Segmental and somatic dysfunction of pelvic region M65.88 Other synovitis and tenosynovitis, other site M79.18 Myalgia, other site M46.07 Spinal enthesopathy, lumbosacral region Office Visit 01/03/2019 2:30p Main Office as Demetrius Rodríguez G89.29 Other chronic Of 03/17/13 DO, MPH pain M54.2 Cervicalgia M99.01 Segmental and somatic dysfunction of cervical region M54.5 Low back pain M25.551 Pain in right hip M25.552 Pain in left hip 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 R53.83 Other fatigue Office Visit 12/04/2018 2:30p Main Office as Demetrius Rodríguez G89.29 Other chronic Of 03/17/13 DO, MPH pain M54.2 Cervicalgia M54.6 Pain in thoracic spine M54.5 Low back pain M25.551 Pain in right hip M25.552 Pain in left hip 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 R53.83 Other fatigue Office Visit 10/27/2018 2:00p Main Office as Demetrius Rodríguez G89.29 Other chronic Of 03/17/13 DO, MPH pain M54.2 Cervicalgia M99.01 Segmental and somatic dysfunction of cervical region M54.6 Pain in thoracic spine M99.02 Segmental and somatic dysfunction of thoracic region M54.5 Low back pain M99.03 Segmental and somatic dysfunction of lumbar region M25.551 Pain in right hip M25.552 Pain in left hip R53.83 Other fatigue 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 Office Visit 09/26/2018 2:15p Main Office as Demetrius Rodríguez G89.29 Other chronic Of 03/17/13 DO, MPH pain M54.5 Low back pain M25.551 Pain in right hip M25.552 Pain in left hip M46.1 Sacroiliitis, not elsewhere classified R53.83 Other fatigue Z79.891 halfway (current) use of opiate analgesic Assessments Date Code Description Provider 03/06/2019 G89.29 Other chronic pain Rodríguez, Demetrius, DO, MPH 03/06/2019 M25.511 Pain in right shoulder Rodríguez, Demetrius, DO, MPH 03/06/2019 M54.2 Cervicalgia Rodríguez, Demetrius, DO, MPH 03/06/2019 M99.01 Segmental and somatic dysfunction of Rodríguez, Demetrius, DO, MPH cervical region 03/06/2019 M54.6 Pain in thoracic spine Rodríguez, Demetrius, DO, MPH 03/06/2019 M25.552 Pain in left hip Rodríguez, Demetrius, DO, MPH 03/06/2019 M25.551 Pain in right hip Rodríguez, Demetrius, DO, MPH 03/06/2019 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 Rodríguez, Demetrius , DO, MPH 03/06/2019 R53.83 Other fatigue Rodríguez, Demetrius, DO, MPH 03/06/2019 Z13.31 Encounter for screening for depression Rodríguez, Demetrius, DO, MPH 02/24/2019 G89.29 Other chronic pain Rodríguez, Demetrius, DO, MPH 02/24/2019 M25.511 Pain in right shoulder Rodríguez, Demetrius, DO, MPH 02/24/2019 M99.07 Segmental and somatic dysfunction of upper Rodríguez, Demetrius, DO, MPH extremity 02/24/2019 M65.88 Other synovitis and tenosynovitis, other Rodríguez, Demetrius, DO , MPH site 02/24/2019 M79.12 Myalgia of auxiliary muscles, head and neck Rodríguez, Demetrius, DO, MPH 02/24/2019 M54.2 Cervicalgia Rodríguez, Demetrius, DO, MPH 02/24/2019 M99.01 Segmental and somatic dysfunction of Rodríguez, Demetrius, DO, MPH cervical region 02/24/2019 M54.6 Pain in thoracic spine Rodríguez, Demetrius, DO, MPH 02/24/2019 M99.02 Segmental and somatic dysfunction of Rodríguez, Demetrius, DO, MPH thoracic region 02/02/2019 G89.29 Other chronic pain Rodríguez, Demetrius, DO, MPH 02/02/2019 M54.6 Pain in thoracic spine Rodríguez, Demetrius, DO, MPH 02/02/2019 M54.2 Cervicalgia Rodríguez, Demetrius, DO, MPH 02/02/2019 M99.01 Segmental and somatic dysfunction of Rodríguez, Demetrius, DO, MPH cervical region 02/02/2019 M25.552 Pain in left hip Rodríguez, Demetrius, DO, MPH 02/02/2019 M25.551 Pain in right hip Rodríguez, Demetrius, DO, MPH 02/02/2019 Z79.891 halfway (current) use of opiate analgesic Rodríguez, Demetrius , DO, MPH 02/02/2019 R53.83 Other fatigue Rodríguez, Demetrius, DO, MPH 01/20/2019 G89.29 Other chronic pain Rodríguez, Demetrius, DO, MPH 01/20/2019 M70.61 Trochanteric bursitis, right hip Rodríguez, Demetrius, DO, MPH 01/20/2019 M70.62 Trochanteric bursitis, left hip Rodríguez, Demetrius, DO, MPH 01/20/2019 M54.6 Pain in thoracic spine Rodríguez, Demetrius, DO, MPH 01/20/2019 M99.02 Segmental and somatic dysfunction of Rodríguez, Demetrius, DO, MPH thoracic region 01/20/2019 M54.5 Low back pain Rodríguez, Demetrius, DO, MPH 01/20/2019 M99.03 Segmental and somatic dysfunction of lumbar Rodríguez, Demetrius, DO, MPH region 01/20/2019 M25.552 Pain in left hip Rodríguez, Demetrius, DO, MPH 01/20/2019 M25.551 Pain in right hip Rodríguez, Demetrius, DO, MPH 01/20/2019 M99.05 Segmental and somatic dysfunction of pelvic Rodríguez, Demetrius, DO, MPH region 01/20/2019 M65.88 Other synovitis and tenosynovitis, other Rodríguez, Demetrius, DO , MPH site 01/20/2019 M79.18 Myalgia, other site Rodríguez, Demetrius, DO, MPH 01/20/2019 M46.07 Spinal enthesopathy, lumbosacral region Rodríguez, Demetrius, DO, MPH 01/03/2019 G89.29 Other chronic pain Rodríguez, Demetrius, DO, MPH 01/03/2019 M54.2 Cervicalgia Rodríguez, Demetrius, DO, MPH 01/03/2019 M99.01 Segmental and somatic dysfunction of Rodríguez, Demetrius, DO, MPH cervical region 01/03/2019 M54.5 Low back pain Rodríguez, Demetrius, DO, MPH 01/03/2019 M25.551 Pain in right hip Rodríguez, Demetrius, DO, MPH 01/03/2019 M25.552 Pain in left hip Rodríguez, Demetrius, DO, MPH 01/03/2019 Z79.891 halfway (current) use of opiate analgesic Rodríguez, Demetrius , DO, MPH 01/03/2019 R53.83 Other fatigue Rodríguez, Demetrius, DO, MPH 12/04/2018 G89.29 Other chronic pain Rodríguez, Demetrius, DO, MPH 12/04/2018 M54.2 Cervicalgia Rodríguez, Demetrius, DO, MPH 12/04/2018 M54.6 Pain in thoracic spine Rodríguez, Demetrius, DO, MPH 12/04/2018 M54.5 Low back pain Rodríguez, Demetrius, DO, MPH 12/04/2018 M25.551 Pain in right hip Rodríguez, Demetrius, DO, MPH 12/04/2018 M25.552 Pain in left hip Rodríguez, Demetrius, DO, MPH 12/04/2018 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 Rodríguez, Demetrius , DO, MPH 12/04/2018 R53.83 Other fatigue Rodríguez, Demetrius, DO, MPH 10/27/2018 G89.29 Other chronic pain Rodríguez, Demetrius, DO, MPH 10/27/2018 M54.2 Cervicalgia Rodríguez, Demetrius, DO, MPH 10/27/2018 M99.01 Segmental and somatic dysfunction of Rodríguez, Demetrius, DO, MPH cervical region 10/27/2018 M54.6 Pain in thoracic spine Rodríguez, Demetrius, DO, MPH 10/27/2018 M99.02 Segmental and somatic dysfunction of Rodríguez, Demetrius, DO, MPH thoracic region 10/27/2018 M54.5 Low back pain Rodríguez, Demetrius, DO, MPH 10/27/2018 M99.03 Segmental and somatic dysfunction of lumbar Rodríguez, Demetrius, DO, MPH region 10/27/2018 M25.551 Pain in right hip Rodríguez, Demetrius, DO, MPH 10/27/2018 M25.552 Pain in left hip Rodríguez, Demetrius, DO, MPH 10/27/2018 R53.83 Other fatigue Rodríguez, Demetrius, DO, MPH 10/27/2018 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 Rodríguez, Demetrius , DO, MPH 09/26/2018 G89.29 Other chronic pain Rodríguez, Demetrius, DO, MPH 09/26/2018 M54.5 Low back pain Rodríguez, Demetrius, DO, MPH 09/26/2018 M25.551 Pain in right hip Rodríguez, Demetrius, DO, MPH 09/26/2018 M25.552 Pain in left hip Rodríguez, Demetrius, DO, MPH 09/26/2018 M46.1 Sacroiliitis, not elsewhere classified Rodríguez, Demetrius, DO, MPH 09/26/2018 R53.83 Other fatigue Rodríguez, Demetrius, DO, MPH 09/26/2018 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 Rodríguez, Demetrius , DO, MPH Plan of Treatment Future Appointment(s):04/03/2019 3:15 pm - Demetrius Rodríguez DO, MPH at Main Office as Of 03/17/1400 - Demetrius Rodríguez DO, MPHG89.29 Other chronic painComments:Chronic. Symptoms and complaints discussed and reviewed today. No significant changes in physical findings. Continue current medical pain management.M25.511 Pain in right shoulderComments:Chronic. Symptoms and complaints discussed and reviewed today. No significant changes in physical findings. Continue current medical pain management.M54.2 CervicalgiaComments: Chronic. Symptoms and complaints discussed and reviewed today. No significant changes in physical findings. Continue current medical pain management.M99.01 Segmental and somatic dysfunction of cervical regionComments:Chronic. Symptoms and complaints discussed and reviewed today. Somatic dysfunctions noted warrantingOMT. Continue current medical pain management and OMT. [id number]. OMT performed.M54.6 Pain in thoracic spineComments:Chronic.Symptoms and complaints discussed and reviewed today. No significant changes in physical findings. Continue current medical pain management.M25.552 Pain in left hipComments: Chronic. Symptoms and complaints discussed and reviewed today. No significant changes in physical findings. Continue current medical pain management.M25.551 Pain in right hipComments:Chronic. Symptoms and complaints discussed and reviewed today. No significant changes in physical findings. Continue current medical pain management.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New Labs:Urine Drug Screen, Ordered: 03/06/19Comments:Urine drug screen sample taken today to monitor opiate use and to monitor use of illicit substances.Will discuss results at next appointment.The following tests were ordered:6 AM, AMPH , ANYA, MELANIE, BUP, CARIS, COCM, ETG, FENT, MCSHSG, OPI, OXY, PCP, TAPEN, XTSY , ZOLP. A urine drug test (UDT) was ordered for this patient and collected on site today. Creatinine has been ordered as well for specimen validity, not for kidney function. Preliminary UDT results are not final and should not be used to determine patient care or plan of treatment. Initially a qualitative immunoassay screen will bedone. Any inconsistent or positive findings will be further tested with a more comprehensive quantitative confirmation LCMS study. It is part of the treatment process of prescribing controlled substances and is considered standard of care.R53.83 Other fatigueComments:Symptoms and complaints discussed and reviewed today. No significant changes in physical findings. Continue current medical pain management. B12 injection administered after patient evaluated. 1ml IM for fatigue. (See Consent for injection-B12 document for lot number and expiration date.)Z13.31 Encounter for screening for depressionComments:PHQ-9 Depression Screen administered today, results were Positive at this time. Followed by PCP. Will follow as pertains to their pain. Patient seems to be stable today. Reassurance and counseling. Patient seems to be stable today.AllComments:Continue current medical pain management; injection therapy, osteopathic manipulation, PT / modalities, and consults as needed to manage chronic pain.Non - opioid pain management discussed and optionsdiscussed.Side effects discussed; anticipatory guidance given. Patient clearly understand and agree with all medical treatments and suggestions. All medicines prescribed are adequate and appropriate for this patient's complaint of pain, medical history, physical, and personal goals.Goals of Treatment are to provide adequate and appropriate multidisciplinary medical pain management to increase/ maintain patient's quality of life and functionality while maintaining satisfactory side effect profile andminimizing [facility] end-organ damage. Importance of regular nutrition throughout the day discussed.Activity as toleratedContinue with PCP Functional Status Description No Information Available Mental Status Description No Information Available Referrals Description No Information Available
--- OUTSIDE RECORDS SUMMARY | 2019-03-31 16:32 | XMS REPORT ---
:1965 Author Organization [facility] Care Team Providers Name Role Phone RAJ ROMEO Primary Care Physician Unavailable Allergies, Adverse Reactions, Alerts Allergy Code CodeSystem Reaction Severity Criticality Status Start Substance Date nkda Moderate Active Medications Medication Medication Medication Start Stop Route Dose Status Fill Code CodeSystem Date Date Instructions duloxetine 059641 RxNorm 2019- oral 60 mg active for 30 10-02 capsule,d day(s) elayed release(D R/EC) duloxetine 639227 RxNorm 2019- oral 60 mg completed for 30 07-19 capsule,d day(s) elayed release(D R/EC) duloxetine 799000 RxNorm 2019- oral 30 mg 1 completed 1 capsule 07-19 capsule,d once a day elayed for 30 day(s) release(D R/EC) once a day duloxetine 401529 RxNorm 2019- oral 30 mg 1 active 1 capsule 10-02 capsule,d once a day elayed for 30 day(s) release(D R/EC) once a day duloxetine 948868 RxNorm 2019- oral 30 mg completed for 30 04-14- capsule,d day(s) elayed release(D R/EC) divalproex 8342901 RxNorm 2019- oral 500 mg completed for 30 03-24- tablet day(s) extended release 24 hr divalproex 0782297 RxNorm 2019- oral 500 mg 1 active Take 1 tablet 10-02 tablet once a day extended for 30 day(s) release 24 hr once a day duloxetine 372468 RxNorm 2019- oral 60 mg completed for 30 04-14 06-05 capsule,d day(s) elayed release(D R/EC) Problems Problem Name Code CodeSystem Alternate Alternate Start End Status Narrative Code CodeSystem Date Date Bipolar 02832545 SNOMED-CT Active affective 3-27 disorder, current episode hypomanic 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 Relevant diagnostic tests/laboratory data Narrative No Information Procedures Procedure Code CodeSystem Target Date of Status Service Device Device Device Name Site Procedure Delivery Code Name UID Location SNOMED-CT () 2018-09-08 complete Mental d Health- [address], [id number] SNOMED-CT () 2018-10-23 complete Mental d Health- [address], [id number] SNOMED-CT () 2018-12-01 complete Mental d Health- [address], [id number] [id number] SNOMED-CT () 2018-12-29 complete Mental d Health- [address], [id number] SNOMED-CT () 2019-01-17 complete Mental d Health- [address], [id number] [phone] Psychotherap 887857 SNOMED-CT () 2019-02-19 complete Mental y, 45 04 d Health- minutes with [address], [id number] Psychotherap 503595 SNOMED-CT () 2018-12-15 complete Mental y, 45 04 d Health- minutes with [address], [id number] [id number] Psychotherap 434444 SNOMED-CT () 2018-10-06 complete Mental y, 45 04 d Health- minutes with [address], [id number] [id number] Psychotherap 268495 SNOMED-CT () 2019-03-01 complete Mental y, 45 04 d Health- minutes with [address], [id number] [phone] Psychotherap 313485 SNOMED-CT () 2018-10-30 complete Mental y, 45 04 d Health- minutes with [address], [id number] [phone] Psychotherap 004284 SNOMED-CT () 2018-11-16 complete Mental y, 45 04 d Health- minutes with [address], [phone] Psychotherap 198682 SNOMED-CT () 2018-09-22 complete Mental y, 45 04 d Health- minutes with [address], [id number] [phone] Psychotherap 191437 SNOMED-CT () 2018-09-29 complete Mental y, 45 04 d Health- minutes with [address], [id number] [phone] Psychotherap 777269 SNOMED-CT () 2018-05-19 complete Mental y, 45 04 d Health- minutes with [address], [id number] [phone] Psychotherap 430818 SNOMED-CT () 2018-06-02 complete Mental y, 45 04 d Health- minutes with [address], [id number] [phone] Psychotherap 254523 SNOMED-CT () 2018-06-16 complete Mental y, 45 04 d Health- minutes with [address], [id number] Psychotherap 693889 SNOMED-CT () 2018-06-30 complete Mental y, 45 04 d Health- minutes with [address], [id number] [phone] Psychotherap 636604 SNOMED-CT () 2018-07-14 complete Mental y, 45 04 d Health- minutes with [address], [id number] [phone] Psychotherap 329961 SNOMED-CT () 2018-07-27 complete Mental y, 45 04 d Health- minutes with [address], [id number] [phone] Psychotherap 089730 SNOMED-CT () 2018-08-14 complete Mental y, 45 04 d Health- minutes with [place] patient [address], [id number] [id number] Psychotherap 418773 SNOMED-CT () 2018-08-24 complete Mental y, 45 04 d Health- minutes with [place] patient [address], [id number] [phone] Preventive 387577 SNOMED-CT () 2019-01-01 complete Mental medicine 0 d Health- counseling [place] and/or risk [facility] factor [address] [place] [address], (s) provided [place], to an [place], individual [id number] (separate [phone] procedure); approximatel y 15 minutes Preventive 800704 SNOMED-CT () 2018-10-09 complete Mental medicine 0 d Health- counseling [place] and/or risk [address], (s) provided [place], to an [place], individual [id number] (separate [phone] procedure); approximatel y 15 minutes Office or 757119 SNOMED-CT () 2018-08-01 complete Mental other 7 d Health- outpatient [place] visit for [address], [facility], established [phone] patient, [phone] which requires at least 2 of these 3 cedillo components: An expanded problem focused history; An expanded problem focused examination; Medical decision making of low Office or 476806 SNOMED-CT () 2018-10-02 complete Mental other 7 d Health- outpatient [place] visit for [address], [facility], established [id number] patient, [phone] which requires at least 2 of these 3 cedillo components: An expanded problem focused history; An expanded problem focused examination; Medical decision making of low Office or 202735 SNOMED-CT () 2018-12-04 complete Mental other 7 d Health- outpatient [place] visit for [address], [facility], established [phone] patient, [phone] which requires at least 2 of these 3 cedillo components: An expanded problem focused history; An expanded problem focused examination; Medical decision making of low SNOMED-CT () 2018-09-14 complete Mental d Health- [place] [address], [id number] [phone] Office or 574902 SNOMED-CT () 2019-02-26 complete Mental other 6 d Health- outpatient [place] visit for [address], [facility], established [id number] patient, [phone] which requires at least 2 of these 3 cedillo components: A problem focused history; A problem focused examination; [place] medical decision making. Counselin Office or 345112 SNOMED-CT () 2018-12-26 complete Mental other 6 d Health- outpatient [place] visit for [address], established [phone] patient, [phone] which requires at least 2 of these 3 cedillo components: A problem focused history; A problem focused examination; Straight[place] medical decision making. Counselin Encounters/Encounter Diagnoses Encounter Name Encounter Diagnosis Diagnosis Diagnosis Date of Service Code Code Name CodeSystem Diagnosis Delivery Location Psychotherapy - 02217 SNOMED-CT 2019-03-01 Behavioral Individual [facility] [address] [place] [address], [phone] Vital Signs No Information Social History Element Description Description Start End Code CodeSystem AdditionalInfo Date Date SexAssignedAtBirth Female 1966-0 F AdministrativeGender 3-06 Hospital Discharge Instructions Reason For Referral Medical Equipment FDA Assessments
--- OUTSIDE RECORDS SUMMARY | 2019-03-31 16:32 | XMS REPORT ---
:1965 Author Organization [facility] Care Team Providers Name Role Phone RAJ ROMEO Primary Care Physician Unavailable Allergies, Adverse Reactions, Alerts Allergy Code CodeSystem Reaction Severity Criticality Status Start Substance Date Moderate Medications Medication Medication Medication Start Stop Route Dose Status Fill Code CodeSystem Date Date Instructions duloxetine 280534 RxNorm 2019- oral 60 mg completed for 30 07-19- capsule,d day(s) elayed release(D R/EC) duloxetine 459021 RxNorm 2019- oral 60 mg completed for 30 04-14 capsule,d day(s) elayed release(D R/EC) divalproex 1429433 RxNorm 2019- oral 500 mg completed for 30 03-24- tablet day(s) extended release 24 hr duloxetine 852292 RxNorm 2019- oral 30 mg 1 active 1 capsule 10-02- capsule,d once a day elayed for 30 day(s) release(D R/EC) once a day duloxetine 201604 RxNorm 2019- oral 60 mg active for 30 10-02-17 capsule,d day(s) elayed release(D R/EC) divalproex 6940368 RxNorm 2019- oral 500 mg 1 active Take 1 tablet 10-02- tablet once a day extended for 30 day(s) release 24 hr once a day duloxetine 394553 RxNorm 20190 2019- oral 30 mg 1 completed 1 capsule 07-19- capsule,d once a day elayed for 30 day(s) release(D R/EC) once a day duloxetine 002726 RxNorm 20190 2019- oral 30 mg completed for 30 04-14-05 capsule,d day(s) elayed release(D R/EC) Problems Problem Name Code CodeSystem Alternate Alternate Start End Status Narrative Code CodeSystem Date Date Emotionally 96074967 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 Bipolar 06175139 SNOMED-CT Active affective 3-27 disorder, current episode hypomanic Relevant diagnostic tests/laboratory data Narrative No Information Procedures Procedure Code CodeSystem Target Date of Status Service Device Device Device Name Site Procedure Delivery Code Name UID Location Psychotherap 400500 SNOMED-CT () 2018-12-15 complete Mental y, 45 04 d Health- minutes with [address], [id number] [phone] Psychotherap 760417 SNOMED-CT () 2018-10-06 complete Mental y, 45 04 d Health- minutes with [address], [id number] [phone] Psychotherap 249201 SNOMED-CT () 2018-10-30 complete Mental y, 45 04 d Health- minutes with [address], [id number] [phone] Psychotherap 175496 SNOMED-CT () 2018-11-16 complete Mental y, 45 04 d Health- minutes with [place], [id number] [phone] Psychotherap 742871 SNOMED-CT () 2018-09-22 complete Mental y, 45 04 d Health- minutes with [address], [id number] [phone] Psychotherap 464706 SNOMED-CT () 2018-09-29 complete Mental y, 45 04 d Health- minutes with [address]tor[address], [id number] [phone] Psychotherap 249867 SNOMED-CT () 2018-08-14 complete Mental y, 45 04 d Health- minutes with Viktor[address], [id number] [phone] Psychotherap 129944 SNOMED-CT () 2018-08-24 complete Mental y, 45 04 d Health- minutes with [address], [phone] Psychotherap 377981 SNOMED-CT () 2018-05-19 complete Mental y, 45 04 d Health- minutes with [place] patient [address], [id number] [phone] Psychotherap 239578 SNOMED-CT () 2018-06-02 complete Mental y, 45 04 d Health- minutes with [place] patient [address], [id number] [phone] Psychotherap 378005 SNOMED-CT () 2018-06-16 complete Mental y, 45 04 d Health- minutes with [place] patient [address], [id number] [phone] Psychotherap 607116 SNOMED-CT () 2018-06-30 complete Mental y, 45 04 d Health- minutes with [place] patient [address], [phone] Psychotherap 128815 SNOMED-CT () 2018-07-14 complete Mental y, 45 04 d Health- minutes with [place] patient [address], [id number] [phone] Psychotherap 048521 SNOMED-CT () 2018-07-27 complete Mental y, 45 04 d Health- minutes with [place] patient [address], [id number] [phone] Preventive 476920 SNOMED-CT () 2018-10-09 complete Mental medicine 0 d Health- counseling [place] and/or [address], (s) provided [place], to an [place], individual [id number] (separate [phone] procedure); approximatel y 15 minutes Preventive 358577 SNOMED-CT () 2019-01-01 complete Mental medicine 0 d Health- counseling [place] and/or risk [address], (s) provided [place], to an [place], individual [id number] (separate [phone] procedure); approximatel y 15 minutes Office or 858762 SNOMED-CT () 2018-08-01 complete Mental other 7 d Health- outpatient [place] visit for [address], [facility], of an [place], established [phone] patient, [phone] which requires at least 2 of these 3 cedillo components: An expanded problem focused history; An expanded problem focused examination; Medical decision making of low Office or 626692 SNOMED-CT () 2018-10-02 complete Mental other 7 d Health- outpatient [place] visit for [address], established [id number] patient, [phone] which requires at least 2 of these 3 cedillo components: An expanded problem focused history; An expanded problem focused examination; Medical decision making of low Office or 408359 SNOMED-CT () 2018-12-04 complete Mental other 7 d Health- outpatient [place] visit for [address], established [id number] patient, [phone] which requires at least 2 of these 3 cedillo components: An expanded problem focused history; An expanded problem focused examination; Medical decision making of low Office or 085045 SNOMED-CT () 2018-12-26 complete Mental other 6 d Health- outpatient [place] visit for [address], established [id number] patient, [phone] which requires at least 2 of these 3 cedillo components: A problem focused history; A problem focused examination; Straight[place]w [place] medical decision making. Cheryl SNOMED-CT () 2018-09-08 complete Mental d [address], [id number] [phone] SNOMED-CT () 2018-10-23 complete Mental d Health[address], [id number] [id number] SNOMED-CT () 2018-12-01 complete Mental d Health[address], [id number] SNOMED-CT () 2018-12-29 complete Mental d Health[address], [id number] [phone] SNOMED-CT () 2019-01-17 complete Mental d [address], [id number] [id number] SNOMED-CT () 2018-09-14 [place] [facility] [place] [address] [place], [id number] Encounters/Encounter Diagnoses Encounter Name Encounter Diagnosis Diagnosis Diagnosis Date of Service Code Code Name CodeSystem Diagnosis Delivery Location Psychotherapy - 98192 SNOMED-CT 2019-01-17 Behavioral Individual 30 [facility] [address] [place], [place], [phone] Vital Signs No Information Social History Element Description Description Start End Code CodeSystem AdditionalInfo Date Date SexAssignedAtBirth Female 1966-0 F AdministrativeGender 3-06 Hospital Discharge Instructions Reason For Referral Medical Equipment FDA Assessments
--- OUTSIDE RECORDS SUMMARY | 2019-03-31 16:32 | XMS REPORT | Continuity of Care Document ---
:1965 External Reference #:[id number] Author Name Demetrius Rodríguez DO, MPH (transmitted by agent of provider Marj Boyle) Address [address] [place] [id number] Care Team Providers Name Role Phone Annie Fonseca M.D. - Family Medicine Care Team Information Director Regulatory Compliance Problems Active Problems Provider Date Finding of sensation of lumbar spine Demetrius Rodríguez DO MPH Onset: 01/20/2019 Spinal enthesopathy Demetrius Rodríguez DO MPH Onset: 01/20/2019 Synovitis and tenosynovitis Demetrius Rodríguez DO, MPH Onset: 01/20/2019 Somatic dysfunction of pelvic region Demetrius Rodríguez DO MPH Onset: 01/20/2019 Arthralgia of the pelvic region and thigh Demetrius Rodríguez DO, MPH Onset: 2018 Somatic dysfunction of lumbar region Demetrius Rodríguez DO, MPH Onset: 01/20/2019 Low back pain Demetrius Rodríguez DO, MPH Onset: 01/20/2019 Social History Type Date Description Comments Sex Unknown Cigarette Use Former Cigarette Smoker ETOH Use Denies alcohol use Tobacco Use Start: Unknown End: Unknown Patient is a former smoker Smoking Status Reviewed: 02/24/19 Patient is a former smoker Allergies, Adverse Reactions, Alerts Active Allergies Reaction Severity Comments Date Skelaxin 03/17/2007 Tramadol 10/22/2015 Ibuprofen 10/22/2015 Butrans Urticaria 02/03/2016 Medications Active Medications SIG Qnty Indications Ordering Date Provider Hydrocodone-Acetaminop take 1 tablet by 60tabs Demetrius Rodríguez 03/19/2016 hen mouth every 12 DO, MPH [...] Available Vital Signs Date Vital Result Comment 02/24/2019 11:16am BP Systolic 128 mmHg BP [...] 86 BMI (Body Mass Index) 24.3 kg/m2 01/20/2019 10:02am BP Systolic 128 mmHg BP Diastolic 84 mmHg Heart Rate 86 /min Respiratory Rate 20 /min Height 65 inches 5'5" Weight 145.00 lb Pain Level 6 Pain at this time. Pain Level With Medicine 5 on average with meds Pain Level Without Medicine 9 without meds Pain Level After Procedure 3 BP Systolic Recheck 130 mmHg Pulse: 88 BP Diastolic Recheck 80 mmHg Pulse: 88 BMI (Body Mass Index) 24.1 kg/m2 Results Description No Information Available Procedures Date Code Description Status 02/02/2019 92972 Omt 1-2 Body Regions Completed 02/02/2019 32791 Therapeutic, Prophylactic Or Diagnostic Injection Subq/Im Completed 01/20/2019 Inject Tendon/Ligament Completed 01/20/2019 Inject Tendon/Ligament Completed 01/20/2019 Injection, Tendon Origin/Insertion Completed 01/20/2019 Injection, Tendon Origin/Insertion Completed 01/20/2019 Injection, Single Or Mutiple Trigger Points One Or Two Completed Muscles 01/20/2019 Arthrocentesis/Aspiration/Inj Of Major Joint Or Bursa W/ Completed Ultra 01/20/2019 Arthrocentesis/Aspiration/Inj Of Major Joint Or Bursa W/ Completed Ultra 01/20/2019 77485 Omt 1-2 Body Regions Completed 01/03/2019 97472 Omt 1-2 Body Regions Completed 01/03/2019 27748 Therapeutic, Prophylactic Or Diagnostic Injection Subq/Im Completed 12/04/2018 46295 Therapeutic, Prophylactic Or Diagnostic Injection Subq/Im Completed 10/27/2018 05937 Omt 3-4 Body Regions Completed 10/27/2018 38238 Therapeutic, Prophylactic Or Diagnostic Injection Subq/Im Completed 09/26/2018 19254 Therapeutic, Prophylactic Or Diagnostic Injection Subq/Im Completed 09/26/201803178 Arthrocentesis/Aspiration/Inj Of Major Joint Or Bursa W/ Completed Ultra Medical Devices Description No Information Available Encounters Type Date Location Provider Dx Diagnosis Office Visit 02/02/2019 Main Office as Of Demetrius Rodríguez DO, G89.29 Other chronic pain 2:00p 03/17/13 MPH M54.6 Pain in thoracic spine M54.2 Cervicalgia M99.01 Segmental and somatic dysfunction of cervical region M25.552 Pain in left hip M25.551 Pain in right hip Z79.891 jail (current) use of opiate analgesic R53.83 Other fatigue Office Visit 01/20/2019 10:00a Main Office as Demetrius Rodríguez G89.29 Other chronic Of 03/17/13 , MPH pain M70.61 Trochanteric bursitis, right hip [...] Visit 01/03/2019 2:30p Main Office as Demetrius Rodríguez, G89.29 Other chronic Of 03/17/13 DO, MPH pain M54.2 Cervicalgia M99.01 Segmental and somatic dysfunction of cervical region M54.5 Low back pain M25.551 Pain in right hip M25.552 Pain in left hip Z79.891 jail (current) use of opiate analgesic R53.83 Other fatigue Office Visit 12/04/2018 2:30p Main Office as Demetrius Rodríguez G89.29 Other chronic Of 03/17/13 DO, MPH pain M54.2 Cervicalgia M54.6 Pain in thoracic spine M54.5 Low back pain M25.551 Pain in right hip M25.552 Pain in left hip 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 R53.83 Other fatigue Office Visit 10/27/2018 2:00p Main Office as Demetrius Rodríguez, G89.29 Other chronic Of 03/17/13 DO, MPH pain M54.2 Cervicalgia M99.01 Segmental and somatic dysfunction of cervical region M54.6 Pain in thoracic spine M99.02 Segmental and somatic dysfunction of thoracic region M54.5 Low back pain M99.03 Segmental and somatic dysfunction of lumbar region M25.551 Pain in right hip M25.552 Pain in left hip R53.83 Other fatigue 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 Office Visit 09/26/2018 2:15p Main Office as Demetrius Rodríguez, G89.29 Other chronic Of 03/17/13 DO, MPH pain M54.5 Low back pain M25.551 Pain in right hip M25.552 Pain in left hip M46.1 Sacroiliitis, not elsewhere classified R53.83 Other fatigue 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 Assessments Date Code Description Provider 02/24/2019 G89.29 Other chronic pain Demetrius Rodríguez, DO, MPH 02/24/2019 M25.512 Pain in left shoulder Rodríguez, Demetrius, DO, MPH 02/24/2019 M99.07 [...] hip Rodríguez, Demetrius, DO, MPH 02/02/2019 Z79.891 jail (current) use of opiate analgesic Rodríguez, Demetrius [...] Rodríguez, Demetrius, DO, MPH 01/03/2019 M54.2 Cervicalgia Rodríguze, Demetrius, DO, MPH 01/03/2019 M99.01 Segmental and somatic dysfunction of Rodríguez, Demetrius, DO, MPH cervical region 01/03/2019 M54.5 Low back pain Rodríguez, Demetrius, DO, MPH 01/03/2019 M25.551 Pain in right hip Rodríguez, Demetrius, DO, MPH 01/03/2019 M25.552 Pain in left hip Rodríguez, Demetrius, DO, MPH 01/03/2019 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 Rodríguez, Demetrius [...] hip Rodríguez, Demetrius, DO, MPH 12/04/2018 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 Symptoms and complaints discussed and reviewed today. No significant changes in physical findings. Continue current medical pain management.M25.512 Pain in left shoulderComments:Chronic. Symptoms and complaints discussed and reviewed today. No significant changes in physical findings. Continue current medical pain management.M99.07 Segmental and somatic dysfunction of upper extremityComments:Chronic. Symptoms and complaints discussed and reviewed today. Somatic dysfunctions noted warrantingOMT to the shoulder. Continue current medical pain management and OMT. Myofascial restrictions. OMTperformed. MFR.M65.88 Other synovitis and tenosynovitis, other siteComments:Chronic. Symptoms and complaints discussed and reviewed today. Physical findings reviewed and warrant intervention. Continue current medical pain management. Injection therapy today - tendon sheath and tendon i/o. Informed consent given/refusal reviewed. See procedure sheet.M79.12 Myalgia of auxiliary muscles, head and neckComments:Symptoms and complaints discussed and reviewed today. Physical findings reviewed and warrant intervention. Injection therapy today - Trigger Point injections. Informed consent given/refusal reviewed. See procedure sheet.M54.2 CervicalgiaComments:Chronic. Symptoms and complaints discussed and reviewed today. No significant changes in physical findings. Continue current medical pain management.M99.01 Segmental and somatic dysfunction of cervical regionComments:Chronic. Symptoms and complaints discussed and reviewed today. Somatic dysfunctions noted warrantingOMT. Continue current medical pain management and OMT. R3WAbAl. OMT performed.M54.6 Pain in thoracic spineComments:Chronic.Symptoms and complaints discussed and reviewed today. No significant changes in physical findings. Continue current medical pain management.M99.02 Segmental and somatic dysfunction of thoracic regionComments:Chronic. Symptoms and complaints discussed and reviewed today. Notable somatic dysfunctions noted warranting OMT. Continue current medical pain management and OMT. [id number]. OMT performed after evaluation. HVLA.AllComments:Continue current medical pain management; injection therapy, osteopathic [...] while maintaining satisfactory side effect profile andminimizing mcc end-organ damage. Importance of regular nutrition throughout the day discussed.Activity as toleratedContinue with PCP Functional Status Description No Information Available Mental Status Description No Information Available Referrals Description No Information Available
--- OUTSIDE RECORDS SUMMARY | 2019-03-31 16:32 | XMS REPORT ---
:1965 Author Organization [facility] Care Team Providers Name Role Phone RAJ ROMEO Primary Care Physician Unavailable Allergies, Adverse Reactions, Alerts Allergy Code CodeSystem Reaction Severity Criticality Status Start Substance Date nkda Moderate Active Medications Medication Medication Medication Start Stop Route Dose Status Fill Code CodeSystem Date Date Instructions divalproex 8912377 RxNorm 2019- oral 500 mg 1 active Take 1 tablet 10-02 tablet once a day extended for 30 day(s) release 24 hr once a day duloxetine 294815 RxNorm 2019- oral 60 mg completed for 30 07-19- capsule,d day(s) elayed release(D R/EC) duloxetine 865239 RxNorm 0 2019- oral 30 mg 1 active 1 capsule 10-02 capsule,d once a day elayed for 30 day(s) release(D R/EC) once a day duloxetine 814352 RxNorm 2018-0 2019- oral 60 mg active for 30 10-02- capsule,d day(s) elayed release(D R/EC) duloxetine 366394 RxNorm 20190 2019- oral 30 mg 1 completed 1 capsule 07-19 capsule,d once a day elayed for 30 day(s) release(D R/EC) once a day divalproex 7468060 RxNorm 2019- oral 500 mg completed for 30 03-24- tablet day(s) extended release 24 hr duloxetine 894714 RxNorm 2019-0 2019- oral 30 mg completed for 30 - 06-05 capsule,d day(s) elayed release(D R/EC) duloxetine 789973 RxNorm 2019-0 2019- oral 60 mg completed for 30 - 06-05 capsule,d day(s) elayed release(D R/EC) Problems Problem Name Code CodeSystem Alternate Alternate Start End Status Narrative Code CodeSystem Date Date Bipolar 36032381 SNOMED-CT Active affective 3-27 disorder, current episode hypomanic 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 Relevant diagnostic tests/laboratory data Narrative No Information Procedures Procedure Code CodeSystem Target Date of Status Service Device Device Device Name Site Procedure Delivery Code Name UID Location Psychotherap [id number] SNOMED-CT () 2018-05-19 complete Mental y, 45 04 d Health- minutes with [facility], [id number] [phone] Psychotherap 289753 SNOMED-CT () 2018-06-02 complete Mental y, 45 04 d Health- minutes with [address], [id number] [phone] Psychotherap 610119 SNOMED-CT () 2018-06-16 complete Mental y, 45 04 d Health- minutes with [address], [id number] [phone] Psychotherap [id number] SNOMED-CT () 2018-06-30 complete Mental y, 45 04 d Health- minutes with [facility], [id number] [phone] Psychotherap 754061 SNOMED-CT () 2018-07-14 complete Mental y, 45 04 d Health- minutes with [address], [id number] [phone] Psychotherap 456651 SNOMED-CT () 2018-07-27 complete Mental y, 45 04 d Health- minutes with [facility], [id number] [phone] Psychotherap 085143 SNOMED-CT () 2018-08-14 complete Mental y, 45 04 d Health- minutes with [address], [id number] [phone] Psychotherap 949869 SNOMED-CT () 2018-08-24 complete Mental y, 45 04 d Health- minutes with [address], [id number] [phone] Office or [id number] SNOMED-CT () 2018-08-01 complete Mental other 7 d Health- outpatient [facility] visit for [address], of an [place], established [id number] patient, [phone] which requires at least 2 of these 3 cedillo components: An expanded problem focused history; An expanded problem focused examination; Medical decision making of low SNOMED-CT () 2018-09-08 complete Mental d Health- [address], [id number] [phone] SNOMED-CT () 2018-09-14 complete Mental d Health- [address], [id number] [id number] Psychotherap 230841 SNOMED-CT () 2018-09-22 complete Mental y, 45 04 d Health- minutes with [facility] patient [address], [id number] [phone] Psychotherap 659167 SNOMED-CT () 2018-09-29 complete Mental y, 45 04 d Health- minutes with [facility] patient [address], [id number] [phone] Office or [id number] SNOMED-CT () 2018-10-02 complete Mental other 7 d Health- outpatient [facility] visit for [address], of [place], established [id number] patient, [phone] which requires at least 2 of these 3 cedillo components: An expanded problem focused history; An expanded problem focused examination; Medical decision making of low Psychotherap 612432 SNOMED-CT () 2018-10-06 complete Mental y, 45 04 d Health- minutes with [facility] patient [address], [id number] [phone] Preventive 580001 SNOMED-CT () 2018-10-09 complete Mental medicine 0 d Health- counseling [facility] and/or risk [address], (s) [facility], to an [place], individual [id number] (separate [id number] procedure); approximatel y 15 minutes SNOMED-CT () 2018-10-23 complete Mental d Health- [address], [id number] [phone] Psychotherap 610107 SNOMED-CT () 2018-10-30 complete Mental y, 45 04 d Health- minutes with [facility] patient [address], [id number] [phone] Psychotherap 615799 SNOMED-CT () 2018-11-16 complete Mental y, 45 04 d Health- minutes with [facility] patient [address], [id number] [phone] Office or [id number] SNOMED-CT () 2018-12-04 complete Mental other 7 d Health- outpatient [facility] visit for [address], of [place], established [id number] patient, [phone] which requires at least 2 of these 3 cedillo components: An expanded problem focused history; An expanded problem focused examination; Medical decision making of low SNOMED-CT () 2018-12-01 complete Mental d Health- [facility] [address], [phone] Psychotherap 448863 SNOMED-CT () 2018-12-15 complete Mental y, 45 04 d Health- minutes with [facility] patient [address], [id number] [phone] SNOMED-CT () 2018-12-29 complete Mental d Health- [facility] [address], [id number] [phone] Office or [id number] SNOMED-CT () 2018-12-26 complete Mental other 6 d Health- outpatient [facility] visit for [address], of [place], established [id number] patient, [phone] which requires at least 2 of these 3 cedillo components: A problem focused history; A problem focused examination; [place] medical decision making. Counselin Preventive 042121 SNOMED-CT () 2019-01-01 complete Mental medicine 0 d Health- counseling [facility] and/or risk [address], (s) provided [place], to [place], individual [id number] (separate [id number] procedure); approximatel y 15 minutes SNOMED-CT () 2019-01-17 complete Mental d Health- [address], [id number] [phone] Psychotherap 601419 SNOMED-CT () 2019-02-19 complete Mental y, 45 04 d Health- minutes with [facility] patient [address], [id number] [phone] Office or 332123 SNOMED-CT () 2019-02-26 complete Mental other 6 d Health- outpatient [facility] visit for [address], [facility], of [place], established [id number] patient, [phone] which requires at least 2 of these 3 cedillo components: A problem focused history; A problem focused examination; [place] medical decision making. Counselin Psychotherap 670472 SNOMED-CT () 2019-03-01 complete Mental y, 45 04 d Health- minutes with [facility] patient [address], [id number] [phone] SNOMED-CT () 2019-03-09 complete Mental d Health- [address], [id number] [phone] Encounters/Encounter Diagnoses Encounter Name Encounter Diagnosis Diagnosis Diagnosis Date of Service Code Code Name CodeSystem Diagnosis Delivery Location Psychotherapy - 15641 SNOMED-CT 2019-03-15 Behavioral Individual [facility] , , , Vital Signs No Information Social History Element Description Description Start End Code CodeSystem AdditionalInfo Date Date SexAssignedAtBirth Female 1966-0 F AdministrativeGender 3-06 Hospital Discharge Instructions Reason For Referral Medical Equipment FDA Assessments
--- OUTSIDE RECORDS SUMMARY | 2019-03-31 16:32 | XMS REPORT ---
:1965 Author Organization [facility] Care Team Providers Name Role Phone RAJ ROMEO Primary Care Physician Unavailable Allergies, Adverse Reactions, Alerts Allergy Code CodeSystem Reaction Severity Criticality Status Start Substance Date nkda Moderate Active Medications Medication Medication Medication Start Stop Route Dose Status Fill Code CodeSystem Date Date Instructions duloxetine 631201 RxNorm 2019- oral 30 mg completed for 30 04-14- capsule,d day(s) elayed release(D R/EC) duloxetine 855270 RxNorm 2019- oral 30 mg 1 completed 1 capsule 07-19 capsule,d once a day elayed for 30 day(s) release(D R/EC) once a day duloxetine 595829 RxNorm 2019- oral 60 mg active for 30 10-02- capsule,d day(s) elayed release(D R/EC) duloxetine 964913 RxNorm 2019- oral 30 mg 1 active 1 capsule 10-02 capsule,d once a day elayed for 30 day(s) release(D R/EC) once a day duloxetine 648913 RxNorm 2019- oral 60 mg completed for 30 04-14- capsule,d day(s) elayed release(D R/EC) divalproex 2925869 RxNorm 2019- oral 500 mg completed for 30 03-24- tablet day(s) extended release 24 hr duloxetine 456983 RxNorm 2019- oral 60 mg completed for 30 07-19-19 capsule,d day(s) elayed release(D R/EC) divalproex 1550805 RxNorm 2019- oral 500 mg 1 active Take 1 tablet 10-02 tablet once a day extended for 30 day(s) release 24 hr once a day Problems Problem Name Code CodeSystem Alternate Alternate Start End Status Narrative Code CodeSystem Date Date Bipolar 21819122 SNOMED-CT Active affective 3-27 disorder, current episode hypomanic Emotionally 97386176 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 Relevant diagnostic tests/laboratory data Narrative No Information Procedures Procedure Code CodeSystem Target Date of Status Service Device Device Device Name Site Procedure Delivery Code Name UID Location Psychotherap [id number] SNOMED-CT () 2019-02-19 complete Mental y, 45 04 d Health- minutes with [facility], [id number] [phone] Psychotherap 381439 SNOMED-CT () 2018-12-15 complete Mental y, 45 04 d Health- minutes with [address], [phone] Psychotherap 982852 SNOMED-CT () 2018-10-06 complete Mental y, 45 04 d Health- minutes with [address], [id number] [id number] Psychotherap 513315 SNOMED-CT () 2018-10-30 complete Mental y, 45 04 d Health- minutes with [address], [phone] [phone] Psychotherap 365259 SNOMED-CT () 2018-11-16 complete Mental y, 45 04 d Health- minutes with [address], [id number] [phone] Psychotherap 416034 SNOMED-CT () 2018-09-22 complete Mental y, 45 04 d Health- minutes with [address], [id number] [phone] Psychotherap 340450 SNOMED-CT () 2018-07-27 complete Mental y, 45 04 d Health- minutes with [address], [id number] [phone] Psychotherap 152727 SNOMED-CT () 2018-08-14 complete Mental y, 45 04 d Health- minutes with [address], [id number] [phone] Psychotherap 419349 SNOMED-CT () 2018-08-24 complete Mental y, 45 04 d Health- minutes with [place] patient [address], [id number] [phone] Psychotherap 970692 SNOMED-CT () 2018-09-29 complete Mental y, 45 04 d Health- minutes with [address], [id number] [phone] Psychotherap 812724 SNOMED-CT () 2018-05-19 complete Mental y, 45 04 d Health- minutes with [facility], [id number] [phone] Psychotherap 100707 SNOMED-CT () 2018-06-02 complete Mental y, 45 04 d Health- minutes with [address], [id number] [phone] Psychotherap 922942 SNOMED-CT () 2018-06-16 complete Mental y, 45 04 d Health- minutes with [facility], [id number] [phone] Psychotherap 737685 SNOMED-CT () 2018-06-30 complete Mental y, 45 04 d Health- minutes with [place], [id number] [phone] Psychotherap 954666 SNOMED-CT () 2018-07-14 complete Mental y, 45 04 d Health- minutes with [address], [id number] [phone] Preventive 985134 SNOMED-CT () 2018-10-09 complete Mental medicine 0 d Health- counseling [facility] and/or risk [address], (s) provided [place], to [place], individual [id number] (separate [id number] procedure); approximatel y 15 minutes Preventive 333294 SNOMED-CT () 2019-01-01 complete Mental medicine 0 d Health- counseling [facility] and/or risk [address], (s) provided [place], to [place], individual [id number] (separate [id number] procedure); approximatel y 15 minutes Office or 204178 SNOMED-CT () 2018-08-01 complete Mental other 7 d Health- outpatient [facility] visit for [address], established [id number] patient, [phone] which requires at least 2 of these 3 cedillo components: An expanded problem focused history; An expanded problem focused examination; Medical decision making of [facility] Office or 169788 SNOMED-CT () 2018-10-02 complete Mental other 7 d Health- outpatient [facility] visit for [address], established [id number] patient, [phone] which requires at least 2 of these 3 cedillo components: An expanded problem focused history; An expanded problem focused examination; Medical decision making of [facility] Office or 880794 SNOMED-CT () 2018-12-04 complete Mental other 7 d Health- outpatient [facility] visit for [address], established [id number] patient, [phone] which requires at least 2 of these 3 cedillo components: An expanded problem focused history; An expanded problem focused examination; Medical decision making of [facility] Office or 810579 SNOMED-CT () 2019-02-26 complete Mental other 6 d Health- outpatient [place] visit for [address], established [phone] patient, [phone] which requires at least 2 of these 3 cedillo components: A problem focused history; A problem focused examination; [place] medical decision making. Counselin Office or 297762 SNOMED-CT () 2018-12-26 complete Mental other 6 d Health- outpatient [place] visit for [address], established [id number] patient, [phone] which requires at least 2 of these 3 cedillo components: A problem focused history; A problem focused examination; [place] medical decision making. Jaidenin SNOMED-CT () 2018-09-08 complete Mental d Health- [place], [id number] [phone] SNOMED-CT () 2018-10-23 complete Mental d Health- [place], [id number] [phone] SNOMED-CT () 2018-12-01 complete Mental d [address], [id number] [phone] SNOMED-CT () 2018-12-29 complete Mental d [address], [id number] [phone] SNOMED-CT () 2019-01-17 complete Mental d [address], [phone] [phone] SNOMED-CT () 2018-09-14 complete Mental d [address], [id number] [phone] Encounters/Encounter Diagnoses Encounter Name Encounter Diagnosis Diagnosis Diagnosis Date of Service Code Code Name CodeSystem Diagnosis Delivery Location [facility] - 92376 SNOMED-CT 2019-03-01 Behavioral Individual [facility] , , , Vital Signs No Information Social History Element Description Description Start End Code CodeSystem AdditionalInfo Date Date SexAssignedAtBirth Female 1966-0 F AdministrativeGender 3-06 Hospital Discharge Instructions Reason For Referral Medical Equipment FDA Assessments
--- OUTSIDE RECORDS SUMMARY | 2019-03-31 16:32 | XMS REPORT | Continuity of Care Document ---
:1965 External Reference #:[id number] Author Name Demetrius Rodríguez DO MPH Address [address] [place] [address], [address] [place] [address] Care Team Providers Name Role Phone Annie Fonseca M.D. - Family Medicine Care Team Information Generalist [phone] Problems Active Problems Provider Date Finding of [...] is a former smoker Smoking Status Reviewed: 01/20/19 Patient is a former smoker Allergies, Adverse [...] Available Vital Signs Date Vital Result Comment 01/20/2019 10:02am BP Systolic 128 mmHg BP [...] 88 BMI (Body Mass Index) 24.1 kg/m2 01/03/2019 2:06pm BP Systolic 122 mmHg BP Diastolic 74 mmHg Heart Rate 76 /min Respiratory Rate 20 /min Height 65 inches 5'5" Weight 144.00 lb Pain Level 9 Pain at this time. Pain Level With Medicine 8 on average with meds Pain Level Without Medicine 9 without meds BMI (Body Mass Index) 24.0 kg/m2 Results Description No Information Available Procedures Date Code Description Status 01/20/2019 79971 Omt 1-2 Body Regions Completed 01/20/2019 Arthrocentesis/Aspiration/Inj Of Major Joint Or Bursa W/ Completed Ultra 01/20/2019 Arthrocentesis/Aspiration/Inj Of Major Joint Or Bursa W/ Completed Ultra 01/20/2019 Injection, Single Or Mutiple Trigger Points One Or Two Completed Muscles 01/20/2019 Injection, Tendon Origin/Insertion Completed 01/20/2019 Injection, Tendon Origin/Insertion Completed 01/20/2019 Inject Tendon/Ligament Completed 01/20/2019 Inject Tendon/Ligament Completed 01/03/2019 99076 Omt 1-2 Body Regions Completed 01/03/2019 75916 Therapeutic, Prophylactic Or Diagnostic Injection Subq/Im Completed 12/04/2018 86896 Therapeutic, Prophylactic Or Diagnostic Injection Subq/Im Completed 10/27/2018 40533 Omt 3-4 Body Regions Completed 10/27/2018 47591 Therapeutic, Prophylactic Or Diagnostic Injection Subq/Im Completed 09/26/2018 09481 Therapeutic, Prophylactic Or Diagnostic Injection Subq/Im Completed 09/26/201895301 Arthrocentesis/Aspiration/Inj Of Major Joint Or Bursa W/ Completed Ultra 08/25/2018 41776 Therapeutic, Prophylactic Or Diagnostic Injection Subq/Im Completed Medical Devices Description No Information Available Encounters Type Date Location Provider Dx Diagnosis Office Visit 01/20/2019 Main Office as Of Demetrius Rodríguez DO G89.29 Other chronic pain 10:00a 03/17/13 MPH M70.61 Trochanteric bursitis, right hip M70.62 Trochanteric [...] Other chronic Of 03/17/13 , MPH pain M54.2 Cervicalgia M99.01 Segmental and somatic dysfunction of cervical region M54.5 Low back pain M25.551 Pain in right hip M25.552 Pain in left hip 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 R53.83 Other fatigue Office Visit 12/04/2018 2:30p Main Office as Demetrius Rodríguez G89.29 Other chronic Of 03/17/13 DO, MPH pain M54.2 Cervicalgia M54.6 Pain in thoracic spine M54.5 Low back pain M25.551 Pain in right hip M25.552 Pain in left hip Z79.891 FDC (current) use of opiate analgesic R53.83 Other [...] in left hip R53.83 Other fatigue 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 Office Visit 09/26/2018 2:15p Main Office as Demetrius Rodríguez G89.29 Other chronic Of 03/17/13 DO, MPH pain M54.5 Low back pain M25.551 Pain in right hip M25.552 Pain in left hip M46.1 Sacroiliitis, not elsewhere classified R53.83 Other fatigue 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 Office Visit 08/25/2018 1:45p Main Office as Demetrius Rodríguez G89.29 Other chronic Of 03/17/13 DO, MPH pain M54.2 Cervicalgia M54.6 Pain in thoracic spine M54.5 Low back pain M25.551 Pain in right hip M25.552 Pain in left hip G90.3 Multi-system degeneration of the autonomic nervous system R53.83 Other fatigue Z79.891 FDC (current) use of opiate analgesic Assessments Date Code Description Provider 02/02/2019 G89.29 Other chronic pain Demetrius Rodríguez DO, MPH 02/02/2019 M54.6 Pain in thoracic spine Demetrius Rodríguez DO MPH 02/02/2019 M54.2 Cervicalgia Demetrius Rodríguez DO, MPH 02/02/2019 M99.01 Segmental and somatic dysfunction of Rodríguez, Demetrius, DO, MPH cervical region 02/02/2019 M25.552 Pain in left hip Rodríguez, Demetrius, DO, MPH 02/02/2019 M25.551 Pain in right hip Rodríguez, Demetrius, DO, MPH 02/02/2019 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 Rodríguez, Demetrius [...] hip Rodríguez, Demetrius, DO, MPH 01/03/2019 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 Rodríguez, Demetrius [...] hip Rodríguez, Demetrius, DO, MPH 12/04/2018 Z79.891 FDC (current) use of opiate analgesic Rodríguez, Demetrius [...] fatigue Rodríguez, Demetrius, DO, MPH 10/27/2018 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 Rodríguez, Demetrius [...] fatigue Rodríguez, Demetrius, DO, MPH 09/26/2018 Z79.891 FDC (current) use of opiate analgesic Rodríguez, Demetrius , DO, MPH 08/25/2018 G89.29 Other chronic pain Rodríguez, Demetrius, DO, MPH 08/25/2018 M54.2 Cervicalgia Rodríguez, Demetrius, DO, MPH 08/25/2018 M54.6 Pain in thoracic spine Rodríguez, Demetrius, DO, MPH 08/25/2018 M54.5 Low back pain Rodríguez, Demetrius, DO, MPH 08/25/2018 M25.551 Pain in right hip Rodríguez, Demetrius, DO, MPH 08/25/2018 M25.552 Pain in left hip Rodríguez, Demetrius, DO, MPH 08/25/2018 G90.3 Multi-system degeneration of the autonomic Rodríguez, Demetrius, DO , MPH nervous system 08/25/2018 R53.83 Other fatigue Rodríguez, Demetrius, DO, MPH 08/25/2018 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 Symptoms and complaints discussed and reviewed today. No significant changes in physical findings. Continue current medical pain management.M54.6 Pain in thoracic spineComments:Chronic.Symptoms and complaints discussed and reviewed today. No significant changes in physical findings. Continue current medical pain management.M54.2 CervicalgiaComments:Chronic. Symptoms and complaints discussed and reviewed today. No significant changes in physical findings. Continue current medical pain management.M99.01 Segmental and somatic dysfunction of cervical regionComments:Chronic. Symptoms and complaints discussed and reviewed today. Somatic dysfunctions noted warrantingOMT. Continue current medical pain management and OMT. I2UVoIs. OMT performed.M25.552 Pain in left hipComments:Chronic. Symptoms and complaints discussed and reviewed today. No significant changes in physical findings. Continue current medical pain management.M25.551 Pain in right hipComments: Chronic. Symptoms and complaints discussed and reviewed today. No significant changes in physical findings. Continue current medical pain management.Z79.891 FDC (current) use of opiate analgesicNew Labs:Urine Drug Screen, Ordered: 02/02/19Comments:Urine drug screen sample taken today to monitor opiate use and to monitor use of illicit substances.Will discuss results at next appointment.The following tests were ordered:6 AM, AMPH, ANYA, MELANIE, BUP, CARIS , COCM, ETG, FENT, MCSHSG, OPI, OXY, PCP, TAPEN, XTSY, ZOLP. A urine drug test (UDT) was [...] injection-B12 document for lot number and expiration date.)AllComments:Continue current medical pain management; injection therapy, osteopathic [...] while maintaining satisfactory side effect profile andminimizing fdc end-organ damage. Importance of regular nutrition throughout the day discussed.Activity as toleratedContinue with PCP Functional Status Description No Information Available Mental Status Description No Information Available Referrals Description No Information Available
[2019-03-31 16:35] VITALS: BP 135/90
--- NOTE | 2019-03-31 17:30 | UC ---
Headache HPI - HPI Summary HPI Summary: ONSET OF A MIGRAINE NEWMAN YESTERDAY. PATIENT TAKES RIZATRIPTAN FOR ABORTIVE TREATMENT WITH GOOD EFFECT BUT HER PRESCRIBER DR. BARROSO HAS LEFT TOWN AND SO SHE IS UNABLE TO GET A REFILL. WAS WONDERING IF SHE COULD GET AN INJECTION OF TORADOL OR A REFILL OF HER PRESCRIPTION. PATIENT STATES SHE GETS MIGRAINE HEADACHES EVERY FEW DAYS. DESCRIBED THROBBING AROUND HER WHOLE HEAD. SHE OCCASIONALLY HAS PHOTOPHOBIA AND PHONOPHOBIA. WHEN ASKED WHY DR. BARROSO WHO IS AN ENT WAS PRESCRIBING THIS MEDICATION SHE STATED HE WAS TREATING HER FOR SINUS PRESSURE BUT GAVE HER THIS MIGRAINE MEDICINE TO SEE IF IT WOULD HELP WHICH IT DID. - History Of Current Complaint Chief Complaint: UCHeadache Stated Complaint: MIGRAINE Time Seen by Provider: 03/31/19 16:40 Hx Obtained From: Patient Hx Last Menstrual Period: last week but irregular Onset/Duration: Gradual Onset, Lasting Days - 1 DAY, Still Present Currently Pain Is: Moderate Pain Intensity: 8 Pain Scale Used: 0-10 Numeric Timing: Constant Character: Throbbing, Migraine Location of Headache: Diffuse Aggravating Factor(s): Bright Lights Allevating Factor(s): Nothing Associated Signs And Symptoms: Positive: Negative - Allergies/Home Medications Allergies/Adverse Reactions: Allergies Allergy/AdvReac Type Severity Reaction Status Date / Time diazepam Allergy Severe See Comment Verified 03/31/19 16:35 metaxalone Allergy Severe Rash Verified 03/31/19 16:35 ibuprofen Allergy See Comment Verified 03/31/19 16:35 oxycodone Allergy Altered Verified 03/31/19 16:35 Mental Status muscle relaxers Allergy Intermediate Altered Uncoded 03/31/19 16:35 Mental Status PMH/Surg Hx/FS Hx/Imm Hx Endocrine History: Hypothyroidism Neurological History: Migraine Psychological History: Bipolar Disorder Other History Of: Negative For: HIV, Hepatitis B, Hepatitis C, Anticoagulant Therapy - Surgical History Surgical History: Yes Surgery Procedure, Year, and Place: TUBAL LIGATION, WISDOM TEETH EXTRACTION - Family History Known Family History: Positive: Cardiac Disease, Hypertension, Other - NONCONTIRBUTORY - Social History Alcohol Use: None Substance Use Type: Prescribed Smoking Status (MU): Former Smoker Type: Cigarettes Have You Smoked in the Last Year: No When Did the Patient Quit Smoking/Using Tobacco: > 10 years ago Review of Systems All Other Systems Reviewed And Are Negative: Yes Constitutional: Positive: Negative Eyes: Positive: Photophobia Respiratory: Positive: Negative Cardiovascular: Positive: Negative Gastrointestinal: Positive: Negative Neurological/Mental Status: Positive: Headache Physical Exam Triage Information Reviewed: Yes Appearance: Well-Appearing, No Pain Distress, Well-Nourished Vital Signs: Initial Vital Signs Temp 97.1 F 03/31/19 16:32 Pulse 105 03/31/19 16:32 Resp 12 03/31/19 16:32 BP 135/90 03/31/19 16:32 Pulse Ox 97 03/31/19 16:32 Vital Signs Reviewed: Yes Eyes: Positive: Conjunctiva Clear, Other: - PERRL, EOMI ENT: Positive: Hearing grossly normal, Pharynx normal, TMs normal Neck: Positive: Supple Respiratory: Positive: No respiratory distress, No accessory muscle use Cardiovascular Exam: Normal Abdomen Description: Positive: Soft Musculoskeletal: Positive: No Edema Neurological: Positive: Alert Psychological: Positive: Age Appropriate Behavior Skin: Negative: Rashes Headache Course/Dx - Course Course Of Treatment: RIZATRIPTAN REFILLED TODAY. I ENCOURAGED PATIENT TO FOLLOW-UP WITH HER PCP DR. ALVA THIS WEEK FOR REEVALUATION AND TO TRANSFER THIS PRESCRIPTION TO HER A PROVIDER DR. BARROSO NO LONGER PRACTICES IN THE AREA. I ALSO RECOMMENDED SHE DISCUSS ALTERNATIVE MANAGEMENT STRATEGIES FOR HER MIGRAINE HEADACHES. SHE MAY BENEFIT FROM DAILY PROPHYLACTIC MEDICATION SHE SEEMS TO BE HAVING MIGRAINE HEADACHES FREQUENTLY. PATIENT OFFERED TORADOL SHOT HOWEVER SHE PREFERS TO TAKE THE RIZATRIPTAN STATING THIS WORKS WELL FOR HER. - Differential Dx/Diagnosis Provider Diagnosis: Migraine Discharge ED - Sign-Out/Discharge Documenting (check all that apply): Patient Departure All imaging exams completed and their final reports reviewed: No Studies - Discharge Plan Condition: Stable Disposition: HOME Prescriptions: Rizatriptan ODT (NF) [Maxalt-CLASSIFICATION INSPECTOR (NF)] 10 mg PO DAILY PRN #9 tab PRN Reason: Migraine Headache Patient Education Materials: Migraine Headache (ED) Referrals: Annie Alva MD [Primary Care Provider] - 1 Week Additional Instructions: RIZATRIPTAN REFILLED TODAY. FOLLOW-UP WITH YOUR PCP TO DISCUSS MIGRAINE MANAGEMENT OPTIONS. - Billing Disposition and Condition Condition: STABLE Disposition: Home
== END 2019-03-31 17:34 | disposition home or self-care (01) ==
LOC: UCEAST 16:24
DX: G43.909 Migraine, unspecified, not intractable, without status migrainosus (principal); F31.9 Bipolar disorder, unspecified; Z88.8 Allergy status to other drugs, medicaments and biological substances; Z88.5 Allergy status to narcotic agent; Z88.6 Allergy status to analgesic agent; Z87.891 Personal history of nicotine dependence
CPT/HCPCS: 99212; G0463